=== PATIENT | male | born 1980 | race Caucasian/White ===

== ENCOUNTER 2023-08-23 08:04 | Outpatient (OUT) | payer BC, SELFPAY ==
[2023-08-23 08:20] LABS: Basophils Absolute Auto 0.1 10^3/uL (0.0-0.1); Basophils Percent Auto 0.8 % (0.2-2.0); Eosinophils Absolute Auto 0.4 10^3/uL (0.0-0.7); Eosinophils Percent Auto 5.1 % (0.9-7.0); Hematocrit 44.2 % (42.0-54.0); Hemoglobin 14.7 g/dL (14.0-18.0); Immature Granulocytes Abs Auto 0.03 10^3/uL (0.00-0.03); Immature Granulocytes Pct Auto 0.4 % (0.0-0.5); Lymphocytes Absolute Auto 1.9 10^3/uL (1.2-3.8); Mean Corpuscular HGB Conc 33.3 g/dL (29.9-35.2); Mean Corpuscular Hemoglobin 31.6 pg (25.9-34.0); Mean Corpuscular Volume 95.1 fL (80.0-94.0); Mean Platelet Volume 9.9 fL (9.5-13.5); Monocytes Absolute Auto 0.7 10^3/uL (0.3-0.8); Monocytes Percent Auto 9.4 % (1.7-12.0); Neutrophils Absolute Auto 4.4 10^3/uL (1.4-6.5); Neutrophils Percent Auto 59.3 % (43.0-75.0); Platelet Count 213 10^3/uL (150-450); Red Blood Count 4.65 10^6/uL (4.70-6.10); Red Cell Distribution Width 13.4 % (11.0-15.0); White Blood Count 7.5 10^3/uL (4.0-11.0)
[2023-08-23 09:01] LABS: Alanine Aminotransferase 51 U/L (16-63); Albumin Globulin Ratio 1.1; Albumin Level 4.1 g/dL (3.4-5.0); Alkaline Phosphatase 87 U/L (46-116); Anion Gap 13.2; Aspartate Amino Transferase 23 U/L (15-37); BUN Creatinine Ratio 11.9; Bilirubin Total 0.5 mg/dL (0.2-1.0); Calcium 8.9 mg/dL (8.5-10.1); Chloride 100 mmol/L (98-107); Chol HDL Ratio 4.6; Cholesterol 214 mg/dL (<=200); Estimated GFR (African America >60 (>=60); Estimated GFR (Non-African Ame >60 (>=60); Globulin 3.8 g/dL; Glucose 93 mg/dL (74-106); HDL Cholesterol 47 mg/dL (40-60); Potassium 4.2 mmol/L (3.5-5.1); Sodium 137 mmol/L (136-145); Thyroid Stimulating Hormone 0.908 uIU/mL (0.358-3.740); Total Protein 7.9 g/dL (6.4-8.2); Triglycerides 76 mg/dL (<=150); VLDL CHOLESTEROL 15.2 mg/dL
== END 2023-08-23 08:05 | disposition home or self-care (01) ==
LOC: LAB 08:05
PROVIDERS: Family Provider Student in an Organized Health Care Education/Training Program; PCP Student in an Organized Health Care Education/Training Program; Visit Provider Student in an Organized Health Care Education/Training Program
DX: Z00.00 Encounter for general adult medical examination without abnormal findings (principal)
CPT/HCPCS: 36415; 80053; 80061; 84443; 85025

== ENCOUNTER 2025-06-17 08:39 | Outpatient (OUT) | payer BC, SELFPAY ==
--- OUTSIDE RECORDS SUMMARY | 2025-06-17 08:42 | XMS_ITS | Encounter Summary ---
Author Organization [facility] Address [address] [place] [address] Care Team Providers Care Field Worker Name Role Phone Anna Iniguez MD Primary Care Provider [phone] Anna Iniguez MD Unavailable [phone] Encounter Details Date Type Department Care Team (Late st Contact Info) Description 08/23/2023 Abstract [facility] [place] [facility] [address] [place] [address] Anna Iniguez MD [address] [place] [address] Social History Tobacco Use Types Packs/Day Years Used Date Smoking Tobacco: Former Cigarettes S tarted: 10/21/2020 Alcohol Use Standard Drinks/Week Comments Yes 0 (1 standard drink = 0.6 oz pur e alcohol) Caffeine intake: soda Humiliation, Afraid, Rape, and Kick questionnair e Answer Date Recorded Within the last year, have y ou been afraid of your partner or ex-partner? No 08/23/2023 Within the last year, have y ou been humiliated or emotionally abused in other ways by your partner or ex-partner? No Within the last year, have y ou been kicked, hit, slapped, or otherwise physically hurt by your partner or ex-partner? No 08/23/2023 Within the last year, have y ou been raped or forced to have any kind of sexual activity by your partner or ex-partner? No 08/23/2023 Social Connection and Isolat ion Panel [NHANES] Answer Date Recorded In a typical week, how many times do you talk on the phone with family, friends, or neighbors? More than three times a week 08/23/2023 How often do you get togethe r with friends or relatives? Once a week 08/23/2023 How often do you attend chur ch or sabianist services? Never 08/23/2023 Do you belong to any clubs o r organizations such as evangelical groups, unions, fraternal or athletic groups, or school groups? Yes 08/23/2023 How often do you attend meet ings of the clubs or organizations you belong to? More than 4 times per year 08/23/2023 Are you , , di vorced, , never , or living with a partner? 08/23/2023 AUDIT-C Answer Date Recorded Q1: How often do you have a drink containing alc ohol? 2-3 times a week 08/23/2023 Q2: How many drinks containi ng alcohol do you have on a typical day when you are drinking? 3 or 4 08/23/2023 Q3: How often do you have si x or more drinks on one occasion? Weekly 08/23/2023 Overall Financial Resource Strain (CARDIA) Answe r Date Recorded How hard is it for you to pa y for the very basics like food, housing, medical care, and heating? Not hard at all 08/23/2023 [facility] - Occupational Stress Questionnaire Answer Date Recorded Do you feel stress - tense, restless, nervous, or anxious, or unable to sleep at night because your mind is troubled all the time - these days? To some extent 08/23/2023 Exercise Vital Sign Answer Date Recorde d On average, how many days pe r week do you engage in moderate to strenuous exercise (like a brisk walk)? 2 days 08/23/2023 On average, how many minutes do you engage in exercise at this level? 30 min 08/23/2023 Hunger Vital Sign Answer Date Recorded Within the past 12 months, y ou worried that your food would run out before you got the money to buy more. Never true 08/23/20 23 Within the past 12 months, t he food you bought just didn't last and you didn't have money to get more. Never true 08/23/2023 PRAPARE - Transportation Answer Date Re corded In the past 12 months, has l ack of transportation kept you from medical appointments or from getting medications? No 05/2023 In the past 12 months, has l ack of transportation kept you from meetings, work, or from getting things needed for daily living? No 08/23/2023 Housing Stability Vital Sign Answer Joseph e Recorded In the last 12 months, was t here a time when you were not able to pay the mortgage or rent on time? No 08/23/2023 In the last 12 months, how many places have you lived? 1 08/23/2023 In the last 12 months, was t here a time when you did not have a steady place to sleep or slept in a long-term (including now)? No 08/23/2023 Sex and Gender Information Value Date Recorded Sex Assigned at Male 08/23/2023 8:51 AM EST Legal Sex Male 7:07 PM EDT Gender Identity Male 2022 7:07 PM EDT Sexual Orientation Bisexual 08/23/2023 8: 51 AM EST Sexual Orientation Straight 08/23/2023 8: 51 AM EST COVID-19 Exposure Response Date Recorded In the last 10 days, have yo u been in contact with someone who was confirmed or suspected to have Coronavirus/COVID-19? No / Unsure 08/23/2023 9:07 AM EST documented as of this encounter Functional Status * Audit-C Score Answer Date of Assessment Author 7 08/23/2023 9:07 AM EST Mychart, Generic * Q1: How often do you have a drink containing alcohol? Answer Date of Assessment Author 2-3 times a week 08/23/2023 9:07 AM EST Mychart, Generic * Q2: How many drinks containing alcohol do you have on a typical day when you are drinking? Answer Date of Assessment Author 3 or 4 08/23/2023 9:07 AM EST Mychart, Generic * Q3: How often do you have six or more drinks on one occasion? Answer Date of Assessment Author Weekly 08/23/2023 9:07 AM EST Mychart, Generic documented as of this encounter Plan of Treatment Not on file documented as of this encounter Visit Diagnoses Not on filedocumented in this encounter Care Teams Field Worker Relationship Specialty Start Date End Date Anna Iniguez MD [address] [place] [address] PCP - General 08/23/23 Anna Iniguez MD [address] [place] [address] PCP - Jarrod Bhagat 04/15/25 documented as of this encounter
--- OUTSIDE RECORDS SUMMARY | 2025-06-17 08:42 | XMS_ITS | Encounter Summary ---
Author Organization [facility] Address [address] [place] [address] Care Team Providers Care Painting Contractor Name Role Phone Anna Iniguez MD Primary Care Provider [phone] Anna Iniguez MD Unavailable [phone] Encounter Details Date Type Department Care Team (Late st Contact Info) Description 09/05/2023 Clinisync Result Encounter [facility] Department Unsolicited Anna Iniguez MD [address] [place] [address] Social History Tobacco Use Types Packs/Day Years Used Date Smoking Tobacco: Former Cigarettes S tarted: 10/21/2020 Smokeless Tobacco: Never Alcohol Use Standard Drinks/Week Comments Yes 0 [...] often do you attend chur ch or jehovah's witness services? Never 08/23/2023 Do you belong to any clubs o r organizations such as baptism groups, unions, fraternal or athletic groups, or [...] and heating? Not hard at all 08/23/2023 [facility] - Occupational Stress [...] place to sleep or slept in a [facility] (including now)? No 08/23/2023 Sex and Gender [...] AM EST documented as of this encounter Plan of Treatment Not on file documented as of this encounter Procedures Procedure Name Priority Date/Time Associated Diagnosis Comments ECG STRESS EXERCISE 09/05/2023 3 :10 PM EST documented in this encounter Results * ECG STRESS EXERCISE (09/05/2023 3:10 PM EST) Anatomical Region Laterality Modality Other 09/05/2023 3:10 PM EST Narrative 09/05/2023 4:16 PM EST Echocardiology Procedure Exam Date/Time Accession # Ordering ECG Stress Exercise 09/05/2023 15:10 EST [id number] Hira FARIAS, Anna Spicer CPT code 24642 Reason for Exam (ECG Stress Exercise) R07.89 Report TREADMILL ELECTROCARDIOGRAM 09/05/2023 INDICATIONS: Chest pain. RESTING ELECTROCARDIOGRAM: The patient has normal sinus rhythm, normal axis, normal intervals, no evidence of previous myocardial infarction. TREADMILL ELECTROCARDIOGRAM: The patient exercised according to a En Protocol for 8 minutes and 54 seconds achieving a maximum workload of 10.10 METS. Resting heart rate was 71 beats per minute and cecille to a maximum of 169 beats per minute which represents 93% of the maximal age predicted heart rate. Resting blood pressure was 118/74 and cecille to a maximum of 190/87. Test was terminated due to fatigue. During exercise the patient's heart rate increased as expected. The patient had no dynamic electrocardiogram changes to suggest ischemia. No arrhythmia is noted. No anginal symptoms noted. CONCLUSIONS: Normal, adequate treadmill electrocardiogram. Negative for ischemia by electrocardiogram criteria. No anginal symptoms noted. No arrhythmia is noted. Appropriate blood pressure response to exercise. Average exercise capacity for age. Test was terminated due to fatigue. The patient tolerated the procedure well. No complications. FINAL REPORT Signed (Electronic Signature): 09/05/2023 4:16 pm Signed by: Farhad KILPATRICK MD Transcribed by: lulú Technologist: Neal Procedure Note Radiology, Radiologist, MD - 09/05/2023 Echocardiology Procedure Exam Date/Time Accession #Ordering ECG Stress Exercise 09/05/2023 15:10 [facility] [id number] Iniguez MD CPT code 71646 Reason for Exam (ECG Stress Exercise) R07.89 Report TREADMILL ELECTROCARDIOGRAM 09/05/2023 INDICATIONS: Chest pain. RESTING ELECTROCARDIOGRAM: The patient has normal sinus rhythm, normalaxis, normal intervals, no evidence of previous myocardial infarction. TREADMILL ELECTROCARDIOGRAM: The patient exercised according to a BruceProtocol for 8 minutes and 54 seconds achieving a maximum workload of 10.10 METS. Resting heartrate was 71 beats per minute and cecille to a maximum of 169 beats per minute which represents 93%of the maximal age predicted heart rate. Resting blood pressure was 118/74 and cecille to amaximum of 190/87. Test was terminated due to fatigue. During exercise the patient's heart rate increased as expected. Thepatient had no dynamic electrocardiogram changes to suggest ischemia. No arrhythmia is noted. Noanginal symptoms noted. CONCLUSIONS: Normal, adequate treadmill electrocardiogram. Negative for ischemia byelectrocardiogram criteria. No anginal symptoms noted. No arrhythmia is noted. Appropriateblood pressure response to exercise. Average exercise capacity for age. Test was terminated due tofatigue. The patient tolerated the procedure well. No complications. FINAL REPORT Signed (Electronic Signature): 09/05/2023 4:16 pm Signed by: FINESSE FARIAS, Farhad Morse Transcribed by: lulú Technologist: CANDIDA us Anna Iniguez MD [facility] Final Resul t documented in this encounter Visit Diagnoses Not on filedocumented in this encounter Care Teams Painting Contractor Relationship Specialty Start Date End Date Anna Iniguez MD [address] [place] [address] PCP - General 08/23/23 Anna Iniguez MD [address] [place] [address] PCP - [place] [employer] 04/15/25 documented as of this encounter
--- OUTSIDE RECORDS SUMMARY | 2025-06-17 08:49 | XMS_ITS | CCD ---
Author Organization [facility] Care Team Providers Care Regional Agronomist Name Role Phone JOSSY INIGUEZ Primary Care Unavailable MISC, DR LEVIN Admitting Unavailable MISC, DR LEVIN Attending Unavailable MISC, DR LEVIN Consulting Unavailable HIRA, JOSSY Primary Care Unavailable MISC, DR LEVIN Admitting Unavailable MISC, DR LEVIN Attending Unavailable MISC, DR LEVIN Consulting Unavailable HIRA, JOSSY Consulting Unavailable ROSSCLEO MANA Admitting Unavailable ROSSCLEO Attending Unavailable ROSSCLEO Consulting Unavailable HIRA, JOSSY Primary Care Unavailable HIRA, JOSSY Primary Care Unavailable CARLOTA JACK Admitting Unavailable CARLOTA, JACK Attending Unavailable CARLOTA JACK Consulting Unavailable JOSIE GAFFNEY ANNMARIE Admitting Unavailable JOSIE GAFFNEY Attending Unavailable JOSIE GAFFNEY Consulting Unavailable HIRA, JOSSY Primary Care Unavailable HIRA, JOSSY Primary Care Unavailable HIRA, JOSSY Consulting Unavailable HIRA, JOSSY Admitting Unavailable JOSSY INIGUEZ Attending Unavailable Hira Anna FARIAS Primary Care Provider ANNA INIGUEZ Attending Unavailable Anna Iniguez Primary Care Physician Kalie Ibarra Attending Unavailable Anna Iniguez Referring Unavailable Kalie Ibarra Attending Unavailable Problems Active Problems Problem Classification Problem Date Documented Da te Episodic/Chronic Genitourinary symptoms and ill-defined conditions (4 sources) Polyuria; Translations: [Polyuria] 03-04-2025 Episodic Hyperplasia of prostate (1 source) Benign prostatic hypertrophy with outflow obstruction; Translations: [Benign prostatic hyperplasia with lower urinary tract symptoms] Onset: 05-27-2025 Chronic Other aftercare (5 sources) 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; Translations: [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 THERAPY] Onset: 03-28-2022 Episodic Other diseases of kidney and ureters (1 source) Urinary tract obstruction; Translations: [Other obstructive and reflux uropathy] Onset: 05-27-2025 Episodic Other nervous system disorders (1 source) Other disturbances of skin sensation; Translations: [OTHER DISTURBANCES SKIN SENSATION] Onset: 06-02-2022 Episodic Other nutritional; endocrine; and metabolic disorders (2 sources) Body mass index 30+ - obesity; Translations: [Body mass index (BMI) 33.0-33.9, adult] 03-04-2025 Chronic Other nutritional; endocrine; and metabolic disorders (2 sources) Obese class I; Translations: [Obesity (BMI 30.0-34.9)] 03-04-2025 Chronic Other skin disorders (4 sources) Other cicatricial alopecia; 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] Onset: 06-01-2022 Episodic Residual codes; unclassified (1 source) Tobacco user 05-26-2025 Episodic Unclassified (2 sources) CONTACT W/AND (SUSP) EXPOS COVID-19; Translations: [CONTACT W/AND (SUSP) EXPOS COVID-19] Onset: 02-25-2022 Viral infection (1 source) COVID-19; Translations: [COVID-19] Onset: 02-25-2022 Past or Other Problems Problem Classification Problem Date Documented Da te Episodic/Chronic Immunizations and screening for infectious disease (6 sources) Encounter for immunization; Translations: [Contact with and (suspected) exposure to other viral communicable diseases] Onset: 07-18-2021 Episodic Malaise and fatigue (3 sources) Other fatigue; Translations: [OTHER FATIGUE] Onset: 07-01-2021 Episodic Other screening for suspected conditions (not mental disorders or infectious disease) (1 source) Encounter for screening for malignant neoplasm of prostate; Translations: [ENC SCREEN MALIG NEOPLASM PROSTATE] Onset: 01-21-2022 Episodic Unclassified (1 source) CONTACT W/AND (SUSP) EXPOS COVID-19; Translations: [CONTACT W/AND (SUSP) EXPOS COVID-19] Onset: 02-23-2022 Results Test Name Value Interpretation Reference Range Facility Ambulatory Visit Summaryon 0 05-27-2025 Ambulatory Visit Summary Ambulatory Visit Summary JEROD ESCOBEDO :1980 Visit Date:05/27/2025 Ambulatory Visit Instructions Your Diagnosis Polyuria Your Care Team Attending Physician - Fred HOLLIS, Kalie Morse Primary Care Physician - Anna Iniguez MD Referring Physician - Anna Iniguez MD Discharge Vitals Heart Rate (Peripheral) 70 Blood Pressure 128/87 Height 168 cm Height 66 in Weight 95 kg Weight 209.439 lb BMI 33.66 Allergies No Known Allergies Patient Survey You may receive a survey via text or e-mail asking about your office visit. Please share your experience with us by completing your survey. We appreciate your feedback and thank you for choosing us for your care. Patient Portal You may access all of your results and other medical record information on our secure patient portal. If you are not signed up for this yet, please contact [employer] at [phone] to get signed up today. Language Information Language assistance services are available as needed. Normal [facility] Urology Office/Clinic Noteon 05-27-2025 Urology Office/Clinic Note Urology Office/Clinic Note Chief Complaint new pt HPI Staff 44 year old male new patient referral polyuria Patient denies any dysuria or gross hematuria. Denies any flank or abdomen pain. urgency History of Present Illness Staff HPI reviewed and agree. Review of Systems PHQ Score Initial Depression Screen Score: 0 SCORE no fever, chills, malaise, myalgia. no rash/lesions. no chest pain, palpitations, or SOB. no abdominal pain, nausea, vomiting. 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 1. BPH with urinary obstruction (N40.1: Benign prostatic hyperplasia with lower urinary tract symptoms) UA today negative for blood or infection PVR today 150ml IPSS 25 Pt here today for polyuria referral. Pt reports over the past couple of years he has noticed an increase in frequency, urgency, straining, weak stream and incomplete emptying. Pt reports he drinks mostly water but does admit to drinking at least 1 pot of coffee daily. Discussed with patient that this is a bladder irritant and is most likely contributing to his bothersome symptoms. Pt also reports diarrhea, discussed bowel/bladder connection. Pt denies DM, kidney stones or hematuria. Pt denies any ejaculation problems or discomfort. Discussed male anatomy with patient which may be contributing to his symptoms as well as bladder function. Advised pt that overtime prostate size can increase which causes symptoms he is describing. Discussed moderately increased PVR, advised pt to complete timed and double voids. Offered trial of Flomax v cystoscopy/TRUS for sizing. Pt reports he would like to trial lifestyle modifications first before proceeding with medications or other intervention. Pt knows to call prior to appointment if symptoms worsen. -Increase water intake, greatly reduce coffee intake -Bowel management -Timed and double voids -F/U in 3 months to assess symptoms Ordered: E&M of New Patient Moderate 45-59 Min 69928 2. Screening PSA (prostate specific antigen) (Z12.5: Encounter for screening for malignant neoplasm of prostate) No PSAs on file. Pt reports family history of prostate cancer in his father. His father was diagnosed in his early 60s, had EBRT and now is undergoing radiation for recurrence. Discussed PSA monitoring with patient due to family history and he is thankful and agreeable. Pt reports he gets yearly labs at [facility] through wellness program. PSA order provided today. Will review at follow up. -PSA order provided today -Will review results at follow up Ordered: E&M of New Patient Moderate 45-59 Min 93616 PSA Total Orders: [id number] Measure Post Void residual urine and/or bladder capacity by US- non-imaging Urnls Dip Stick Auto w/o Microscopy POC [id number] Follow-up With When Contact Information Fred HOLLIS, MARI Solis Within 3 months Additional Instructions: w/ PSA Patient Education Benign Prostatic Hyperplasia Problem List/Past Medical History Ongoing No qualifying data Historical No qualifying data Medications No active medications Allergies No Known Allergies Social History Alcohol Past. Wine, Liquor. Daily., 05/26/2025 Substance Abuse Never., 05/26/2025 Tobacco 4 or less cigarettes(less than 1/4 pack)/day in last 30 days Tobacco Use:., 05/26/2025 Lab Results Ambulatory Point of Care Results Bilirubin Urine Dipstick: Negative (05/27/25 12:55:00) Blood Urine Dipstick: Negative (05/27/25 12:55:00) Glucose Urine Dipstick: Negative (05/27/25 12:55:00) Ketones Urine Dipstick: Negative (05/27/25 12:55:00) Leukocytes Urine Dipstick: Negative (05/27/25 12:55:00) Nitrite Urine Dipstick: Negative (05/27/25 12:55:00) Protein Urine Dipstick: Negative (05/27/25 12:55:00) Specific [place] Urine Dipstick: 1.010 (05/27/25 12:55:00) Urine Appearance Urine Dipstick: Clear (05/27/25 12:55:00) Urine Color Urine Dipstick: Yellow (05/27/25 12:55:00) Urobilinogen Urine Dipstick: Normal 0.2-1 EU/dl (05/27/25 12:55:00) pH Urine Dipstick: 7 (05/27/25 12:55:00) Normal [facility] Comment on above: Result Comment: Elec tronically Signed By: Kalie Chung\.br\Date and Time Signed: 05/27/25 14:08 EDT CBC AUTO DIFFon 06-01-2022 BASO # 0.1 103/ul Normal 0.0-0.1 [facility] Comment on above: Performed By: #### C BC #### [facility] [address] [address] [address] Eboni Phelan Basophils/100 WBC (Bld) 1.1 % Normal 0.2-2.0 [facility] Comment on above: Performed By: #### C BC #### [facility] [address] [address] [address] Eboni Phelan EO # 0.5 103/ul Normal 0.0-0.7 [facility] Comment on above: Performed By: #### C BC #### [facility] [address] [place] [address] Dr. Eboni Phelan Eosinophils/100 WBC (Bld) 6.5 % Normal 0.9-7.0 [facility] Comment on above: Performed By: #### C BC #### [facility] [address] [place] [address] Dr. Eboni Phelan Erythrocyte distribution width (RBC) [Ratio] 13.2 % Normal 11.0-15.0 [facility] Comment on above: Performed By: #### C BC #### [facility] [address] [place] [address] Dr. Eboni Phelan Hematocrit (Bld) [Volume fraction] 44.5 % Normal 42.0-54.0 [facility] Comment on above: Performed By: #### C BC #### [facility] [address] [place] [address] Dr. Eboni Phelan Hemoglobin (Bld) [Mass/Vol] 15.0 g/dL Normal 14.0-18.0 [facility] Comment on above: Performed By: #### C BC #### [facility] [address] [place] [address] Dr. Eboni Phelan IG # 0.02 10e3/ul Normal 0.00-0.03 [facility] Comment on above: Performed By: #### C BC #### [facility] [address] [place] [address] Dr. Eboni Phelan IG % 0.2 % Normal 0.0-0.5 [facility] Comment on above: Performed By: #### C BC #### [facility] [address] [place] [address] Dr. Eboni Phelan LYMPH # 2.1 103/ul Normal 1.2-3.8 [facility] Comment on above: Performed By: #### C BC #### [facility] [address] [place] [address] Dr. Eboni Phelan Lymphocytes/100 WBC (Bld) 25.6 % Normal 20.5-60.0 [facility] Comment on above: Performed By: #### C BC #### [facility] [address] [place] [address] Dr. Eboni Phelan MANUAL DIFF REQ NO Normal [facility] Comment on above: Performed By: #### C BC #### [facility] [address] [place] [address] Dr. Eboni Phelan MCH (RBC) [Entitic mass] 31.6 pg Normal 25.9-34.0 [facility] Comment on above: Performed By: #### C BC #### [facility] [address] [place] [address] Dr. Eboni Phelan MCHC (RBC) [Mass/Vol] 33.7 g/dL Normal 29.9-35.2 [facility] Comment on above: Performed By: #### C BC #### [facility] [address] [place] [address] Dr. Eboni Phelan MCV (RBC) [Entitic vol] 93.7 fL Normal 80.0-94.0 [facility] Comment on above: Performed By: #### C BC #### [facility] [address] [place] [address] Dr. Eboni Phelan MONO # 0.7 103/ul Normal 0.3-0.8 [facility] Comment on above: Performed By: #### C BC #### [facility] [address] [place] [address] Dr. Eboni Phelan Monocytes/100 WBC (Bld) 8.1 % Normal 1.7-12.0 [facility] Comment on above: Performed By: #### C BC #### [facility] [address] [place] [address] Dr. Eboni Phelan NEUT # 4.8 103/ul Normal 1.4-6.5 [facility] Comment on above: Performed By: #### C BC #### [facility] [address] [place] [address] Dr. Eboni Phelan Neutrophils/100 WBC (Bld) 58.5 % Normal 43.0-75.0 [facility] Comment on above: Performed By: #### C BC #### [facility] [address] [place] [address] Dr. Eboni Phelan Platelet mean volume (Bld) [Entitic vol] 9.3 fL Critically low 9.5-13.5 [facility] Comment on above: Performed By: #### C BC #### [facility] [address] [place] [address] Dr. Eboni Phelan PLT 247 103/ul Normal 150-450 [facility] Comment on above: Performed By: #### C BC #### [facility] [address] [place] [address] Dr. Eboni Phelan RBC 4.75 106/ul Normal 4.70-6.10 [facility] Comment on above: Performed By: #### C BC #### [facility] [address] [place] [address] Dr. Eboni Phelan WBC 8.2 103/ul Normal 4.0-11.0 [facility] Comment on above: Performed By: #### C BC #### [facility] [address] [place] [address] Dr. Eboni Phelan SGOTon 06-01-2022 AST [Catalytic activity/Vol] 18 U/L Normal 15-37 [facility] Comment on above: Performed By: #### A ST, ALT, TRIG #### [facility] [address] [place] [address] Dr. Eboni Phelan SGPTon 06-01-2022 ALT [Catalytic activity/Vol] 25 U/L Normal 16-63 [facility] Comment on above: Performed By: #### A ST, ALT, TRIG #### [facility] [address] [place] [address] Dr. Eboni Phelan TRIGLYCERIDEon 06-01-2022 Triglyceride [Mass/Vol] 100 mg/dL Normal <=150 [facility] Comment on above: Performed By: #### A ST, ALT, TRIG #### [facility] [address] [place] [address] Dr. Eboni Phelan CBC AUTO DIFFon 03-28-2022 BASO # 0.1 103/ul Normal 0.0-0.1 [facility] Comment on above: Performed By: #### C PRICE CVDTBH #### [facility] [address] [place] [address] Dr. Eboni Phelan Basophils/100 WBC (Bld) 1.0 % Normal 0.2-2.0 [facility] Comment on above: Performed By: #### C PRICE CVDTBH #### [facility] [address] [place] [address] Dr. Eboni Phelan EO # 0.4 103/ul Normal 0.0-0.7 [facility] Comment on above: Performed By: #### C CORNELIUS THRASHERTBH #### [facility] [address] [place] [address] Dr. Eboni Phelan Eosinophils/100 WBC (Bld) 4.5 % Normal 0.9-7.0 [facility] Comment on above: Performed By: #### CORNELIUS CHRISTIETBH #### [facility] [address] [place] [address] Dr. Eboni Phelan Erythrocyte distribution width (RBC) [Ratio] 13.5 % Normal 11.0-15.0 [facility] Comment on above: Performed By: #### CORNELIUS CHRISTIETBH #### [facility] [address] [place] [address] Dr. Eboni Phelan Hematocrit (Bld) [Volume fraction] 42.5 % Normal 42.0-54.0 [facility] Comment on above: Performed By: #### CORNELIUS CHRISTIETBH #### [facility] [address] [place] [address] Dr. Eboni Phelan Hemoglobin (Bld) [Mass/Vol] 14.1 g/dL Normal 14.0-18.0 [facility] Comment on above: Performed By: #### C PRICE CVDTBH #### [facility] [address] [place] [address] Dr. Eboni Phelan IG # 0.04 10e3/ul Critically high 0.00-0.03 [facility] Comment on above: Performed By: #### C PRICE CVDTBH #### [facility] [address] [place] [address] Dr. Eboni Phelan IG % 0.5 % Normal 0.0-0.5 [facility] Comment on above: Performed By: #### C VDAGS, CVDTBH #### [facility] [address] [address] [address] Eboni Phelan LYMPH # 2.7 103/ul Normal 1.2-3.8 [facility] Comment on above: Performed By: #### C VDAGS, CVDTBH #### [facility] [address] [place] [address] Dr. Eboni Phelan Lymphocytes/100 WBC (Bld) 31.2 % Normal 20.5-60.0 [facility] Comment on above: Performed By: #### C VDAGS, CVDTBH #### [facility] [address] [place] [address] Dr. Eboni Phelan MANUAL DIFF REQ NO Normal [facility] Comment on above: Performed By: #### C VDAGS, CVDTBH #### [facility] [address] [place] [address] Dr. Eboni Phelan MCH (RBC) [Entitic mass] 31.3 pg Normal 25.9-34.0 [facility] Comment on above: Performed By: #### C VDAGS, CVDTBH #### [facility] [address] [place] [address] Dr. Eboni Phelan MCHC (RBC) [Mass/Vol] 33.2 g/dL Normal 29.9-35.2 [facility] Comment on above: Performed By: #### C VDAGS, CVDTBH #### [facility] [address] [place] [address] Dr. Eboni Phelan MCV (RBC) [Entitic vol] 94.4 fL Critically high 80.0-94.0 [facility] Comment on above: Performed By: #### C VDAGS, CVDTBH #### [facility] [address] [place] [address] Dr. Eboni Phelan MONO # 0.8 103/ul Normal 0.3-0.8 [facility] Comment on above: Performed By: #### C CORNELIUS THRASHERTBH #### [facility] [address] [place] [address] Dr. Eboni Phelan Monocytes/100 WBC (Bld) 9.5 % Normal 1.7-12.0 [facility] Comment on above: Performed By: #### C PRICE CVDTBH #### [facility] [address] [place] [address] Dr. Eboni Phelan NEUT # 4.6 103/ul Normal 1.4-6.5 [facility] Comment on above: Performed By: #### C PRICE CVDTBH #### [facility] [address] [place] [address] Dr. Eboni Phelan Neutrophils/100 WBC (Bld) 53.3 % Normal 43.0-75.0 [facility] Comment on above: Performed By: #### C PRICE CVDTBH #### [facility] [address] [place] [address] Dr. Eboni Phelan Platelet mean volume (Bld) [Entitic vol] 9.8 fL Normal 9.5-13.5 [facility] Comment on above: Performed By: #### C PRICE CVDTBH #### [facility] [address] [place] [address] Dr. Eboni Phelan PLT 274 103/ul Normal 150-450 [facility] Comment on above: Performed By: #### C PRICE CVDTBH #### [facility] [address] [place] [address] Dr. Eboni Phelan RBC 4.50 106/ul Critically low 4.70-6.10 [facility] Comment on above: Performed By: #### C PRICE CVDTBH #### [facility] [address] [place] [address] Dr. Eboni Phelan WBC 8.7 103/ul Normal 4.0-11.0 [facility] Comment on above: Performed By: #### C VDAGS, CVDTBH #### [facility] [address] [address] [address] Eboni Phelan SGOTon 03-28-2022 AST [Catalytic activity/Vol] 21 U/L Normal 15-37 [facility] Comment on above: Performed By: #### T RIG, ALT, AST #### [facility] [address] [place] [address] Dr. Eboni Phelan SGPTon 03-28-2022 ALT [Catalytic activity/Vol] 38 U/L Normal 16-63 [facility] Comment on above: Performed By: #### T RIG, ALT, AST #### [facility] [address] [address] [address] Eboni Phelan TRIGLYCERIDEon 03-28-2022 Triglyceride [Mass/Vol] 104 mg/dL Normal <=150 [facility] Comment on above: Performed By: #### T RIG, ALT, AST #### [facility] [address] [place] [address] Dr. Eboni Phelan SYMPTOMATIC COVID-19 ANTIGEN on 02-23-2022 EUA Statement SEE BELOW Normal [facility] Comment on above: Result Comment: This test has not been FDA cleared or approved, but has been authorized by the FDA under an Emergency Use Authorization (EUA) for use by authorized laboratories certified under CLIA that meet the requirements to perform moderate or high complexity testing. This test has been authorized only for the detection of proteins from SARS-CoV-2, not for any other viruses or pathogens. The emergency use of this test is authorized for the duration of the declaration that circumstances exist justifying the authorization of emergency use of in vitro diagnostic tests for detection and/or diagnosis of Covid-19 under section 564(b)(1) of the Act, 21 U.S.C. 360bbb-3(b)(1), unless the declaration is terminated or authorization is revoked sooner. Performed By: #### C VDAGS, CVDTBH #### [facility] [address] [place] [address] Dr. Eboni Phelan SARS-CoV-2 (COVID-19) RNA WINIFRED+probe Ql (Unsp spec) Positive Critically abnormal NEGATIVE [facility] Comment on above: Performed By: #### C PRICE CVDTB #### [facility] [address] [place] [address] Dr. Eboni Phelan BILIRUBIN CONJUGATED (DIRECT )on 01-19-2022 BILI, CONJUGATED 0.1 mg/dL Normal 0.0-0.3 [facility] Comment on above: Performed By: #### C PRICE CVDTB #### [facility] [address] [place] [address] Dr. Eboni Phelan CBC AUTO DIFFon 01-19-2022 BASO # 0.1 103/ul Normal 0.0-0.1 [facility] Comment on above: Performed By: #### C PRICE CVDTB #### [facility] [address] [place] [address] Dr. Eboni Phelan Basophils/100 WBC (Bld) 0.8 % Normal 0.2-2.0 [facility] Comment on above: Performed By: #### C PRICE CVDTB #### [facility] [address] [place] [address] Dr. Eboni Phelan EO # 0.4 103/ul Normal 0.0-0.7 [facility] Comment on above: Performed By: #### C PRICE CVDTB #### [facility] [address] [place] [address] Dr. Eboni Phelan Eosinophils/100 WBC (Bld) 5.0 % Normal 0.9-7.0 [facility] Comment on above: Performed By: #### C PRICE CVDTB #### [facility] [address] [place] [address] Dr. Eboni Phelan Erythrocyte distribution width (RBC) [Ratio] 13.2 % Normal 11.0-15.0 [facility] Comment on above: Performed By: #### C PRICE CVDTB #### [facility] [address] [place] [address] Dr. Eboni Phelan Hematocrit (Bld) [Volume fraction] 44.1 % Normal 42.0-54.0 [facility] Comment on above: Performed By: #### C VDAGS CVDTBH #### [facility] [address] [place] [address] Dr. Eboni Phelan Hemoglobin (Bld) [Mass/Vol] 14.9 g/dL Normal 14.0-18.0 [facility] Comment on above: Performed By: #### C VDAGS CVDTBH #### [facility] [address] [place] [address] Dr. Eboni Phelan IG # 0.02 10e3/ul Normal 0.00-0.03 [facility] Comment on above: Performed By: #### C CORNELIUS THRASHERTBH #### [facility] [address] [place] [address] Dr. Eboni Phelan IG % 0.3 % Normal 0.0-0.5 [facility] Comment on above: Performed By: #### C PRICE CVDTBH #### [facility] [address] [place] [address] Dr. Eboni Phelan LYMPH # 2.0 103/ul Normal 1.2-3.8 [facility] Comment on above: Performed By: #### C PRICE CVDTBH #### [facility] [address] [place] [address] Dr. Eboni Phelan Lymphocytes/100 WBC (Bld) 27.3 % Normal 20.5-60.0 [facility] Comment on above: Performed By: #### C VDAGMarc CVDTBH #### [facility] [address] [place] [address] Dr. Eboni Phelan MANUAL DIFF REQ NO Normal [facility] Comment on above: Performed By: #### C KITTYAGMarc CVDTBH #### [facility] [address] [place] [address] Dr. Eboni Phelan MCH (RBC) [Entitic mass] 31.7 pg Normal 25.9-34.0 [facility] [facility] Comment on above: Performed By: #### C VDAGS CVDTBH #### [facility] [address] [place] [address] Dr. Eboni Phelan MCHC (RBC) [Mass/Vol] 33.8 g/dL Normal 29.9-35.2 [facility] Comment on above: Performed By: #### C VDAGMarc, CVDTB #### [facility] [address] [place] [address] Dr. Eboni Phelan MCV (RBC) [Entitic vol] 93.8 fL Normal 80.0-94.0 [facility] Comment on above: Performed By: #### C VDAGS, CVDTB #### [facility] [address] [place] [address] Dr. Eboni Phelan MONO # 0.6 103/ul Normal 0.3-0.8 [facility] Comment on above: Performed By: #### C VDAGS, CVDTB #### [facility] [address] [place] [address] Dr. Eboni Phelan Monocytes/100 WBC (Bld) 7.6 % Normal 1.7-12.0 [facility] Comment on above: Performed By: #### C VDAGS, CVDTBH #### [facility] [address] [place] [address] Dr. Eboni Phelan NEUT # 4.4 103/ul Normal 1.4-6.5 [facility] Comment on above: Performed By: #### C VDAGS, CVDTB #### [facility] [address] [place] [address] Dr. Eboni Phelan Neutrophils/100 WBC (Bld) 59.0 % Normal 43.0-75.0 [facility] Comment on above: Performed By: #### C VDAGS, CVDTB #### [facility] [address] [place] [address] Dr. Eboni Phelan Platelet mean volume (Bld) [Entitic vol] 9.9 fL Normal 9.5-13.5 [facility] Comment on above: Performed By: #### C VDAGS, CVDTBH #### [facility] [address] [place] [address] Dr. Eboni Phelan PLT 231 103/ul Normal 150-450 [facility] Comment on above: Performed By: #### C VDAGS, CVDTBH #### [facility] [address] [address] [address] Eboni Phelan RBC 4.70 106/ul Normal 4.70-6.10 [facility] Comment on above: Performed By: #### C VDAGS, CVDTBH #### [facility] [address] [address] [address] Eboni Phelan WBC 7.4 103/ul Normal 4.0-11.0 [facility] Comment on above: Performed By: #### C VDAGS, CVDTBH #### [facility] [address] [address] [address] Eboni Phelan GLYCOHEMOGLOBIN A1Con 2021 ADA RECOMMENDATION ADA THERAPEUTIC TARGET 6.0 - 7.0 ACTION SUGGESTED > 7.0 Normal [facility] Comment on above: Performed By: #### C PRICE CVDTBH #### [facility] [address] [address] [address] Eboni Phelan Glucose [Mass/Vol] 103 mg/dL Normal [facility] Comment on above: Performed By: #### C PRICE CVDTBH #### [facility] [address] [address] [address] Eboni Phelan HbA1c (Bld) [Mass fraction] 5.2 % Normal <=6.0 [facility] Comment on above: Performed By: #### C PRICE, CVDTBH #### [facility] [address] [address] [address] Eboni Phelan LIPID PROFILEon 01-19-2022 CHOL-HDL RATIO NORM SEE BELOW Normal [facility] Comment on above: Result Comment: 3.3 - 4.4 LOW RISK 4.4 - 7.1 AVERAGE RISK 7.1 - 11.0 MODERATE RISK >11.0 HIGH RISK Performed By: #### C VDAGS, CVDTBH #### [facility] [address] [address] [address] Eboni Phelan Cholesterol [Mass/Vol] 179 mg/dL Normal <=200 [facility] Comment on above: Performed By: #### C VDAGS, CVDTBH #### [facility] [address] [address] [address] Eboni Phelan Cholesterol in HDL [Mass/Vol] 41 mg/dL Normal 40-60 [facility] Comment on above: Performed By: #### C VDAGS, CVDTBH #### [facility] [address] [address] [address] Eboni Phelan Cholesterol in LDL [Mass/Vol] 117.6 mg/dL Normal [facility] Comment on above: Performed By: #### C VDAGS, CVDTBH #### [facility] [address] [address] [address] Eboni Phelan Cholesterol.total/Ch olesterol in HDL [Mass ratio] 4.4 {ratio} Normal [facility] Comment on above: Performed By: #### C VDAGS CVDTBH #### [facility] [address] [address] [address] Eboni Phelan HDL NORMAL > or = 60 mg/dl - LOW CARDIOVASCULAR RISK <40 mg/dl - HIGH CARDIOVASCULAR RISK Normal [facility] Comment on above: Performed By: #### C VDAGMarc CVDTBH #### [facility] [address] [address] [address] Eboni Phelan LDL CALC NORMAL SEE BELOW Normal [facility] Comment on above: Result Comment: <100 mg/dl OPTIMAL 100 - 129 mg/dl NEAR OR ABOVE OPTIMAL 130 - 159 mg/dl BORDERLINE HIGH 160 - 189 mg/dl HIGH >190 mg/dl VERY HIGH Performed By: #### C VDAGS, CVDTBH #### [facility] [address] [address] [address] Eboni Phelan Triglyceride [Mass/Vol] 102 mg/dL Normal <=150 [facility] Comment on above: Performed By: #### C VDAGS, CVDTBH #### [facility] [address] [address] [address] Eboni Phelan VLDL CALC 20.4 mg/dL Normal [facility] Comment on above: Performed By: #### C PRICE CVDTBH #### [facility] [address] [place] [address] Dr. Eboni Phelan PROF 14(COMP METB)on 022 Albumin [Mass/Vol] 4.0 g/dL Normal 3.4-5.0 [facility] Comment on above: Performed By: #### C PRICE CVDTBH #### [facility] [address] [place] [address] Dr. Eboni Phelan Albumin/Globulin [Mass ratio] 1.1 {ratio} Normal [facility] Comment on above: Performed By: #### C CORNELIUS THRASHERTBH #### [facility] [address] [place] [address] Dr. Eboni Phelan ALP [Catalytic activity/Vol] 87 U/L Normal 46-116 [facility] Comment on above: Performed By: #### C PRICE CVDTBH #### [facility] [address] [place] [address] Dr. Eboni Phelan ALT [Catalytic activity/Vol] 49 U/L Normal 16-63 [facility] Comment on above: Performed By: #### C CORNELIUS THRASHERTBH #### [facility] [address] [place] [address] Dr. Eboni Phelan Anion gap [Moles/Vol] 8.8 mmol/L Normal [facility] Comment on above: Performed By: #### C VDAGMarc CVDTBH #### [facility] [address] [place] [address] Dr. Eboni Phelan AST [Catalytic activity/Vol] 22 U/L Normal 15-37 [facility] Comment on above: Performed By: #### C PRICE CVDTBH #### [facility] [address] [place] [address] Dr. Eboni Phelan Bilirubin [Mass/Vol] 0.4 mg/dL Normal 0.2-1.3 [facility] Comment on above: Performed By: #### C VDAGMarc CVDTBH #### [facility] [address] [place], [place] [id number] Dr. Eboni Phelan Calcium [Mass/Vol] 9.2 mg/dL Normal 8.5-10.1 [facility] Comment on above: Performed By: #### C VDAGS, CVDTBH #### [facility] [address] [place] [address] Dr. Eboni Phelan Chloride [Moles/Vol] 101 mmol/L Normal 98-107 [facility] Comment on above: Performed By: #### C VDAGS, CVDTBH #### [facility] [address] [place] [address] Dr. Eboni Phelan CO2 [Moles/Vol] 30.7 mmol/L Critically high 22.0-30.0 [facility] Comment on above: Performed By: #### C VDAGS, CVDTBH #### [facility] [address] [place] [address] Dr. Eboni Phelan Creatinine [Mass/Vol] 1.00 mg/dL Normal 0.66-1.25 [facility] Comment on above: Performed By: #### C VDAGS, CVDTBH #### [facility] [address] [place] [address] Dr. Eboni Phelan EGFR-AF ROMANIAN >60 Normal >=60 [facility] Comment on above: Performed By: #### C VDAGS, CVDTBH #### [facility] [address] [place] [address] Dr. Eboni Phelan EGFR-NON AF ROMANIAN >60 Normal >=60 [facility] Comment on above: Performed By: #### C VDAGS, CVDTBH #### [facility] [address] [place] [address] Dr. Eboni Phelan Globulin (S) [Mass/Vol] 3.8 g/dL Normal [facility] Comment on above: Performed By: #### C VDAGS, CVDTBH #### [facility] [address] [place] [address] Dr. Eboni Phelan Glucose [Mass/Vol] 102 mg/dL Normal 74-106 [facility] Comment on above: Performed By: #### C VDAGS, CVDTBH #### [facility] [address] [place] [address] Dr. Eboni Phelan Potassium [Moles/Vol] 4.5 mmol/L Normal 3.4-5.0 [facility] Comment on above: Performed By: #### C KITTYAGMarc CVDTBH #### [facility] [address] [place] [address] Dr. Eboni Phelan Protein [Mass/Vol] 7.8 g/dL Normal 6.1-8.2 [facility] Comment on above: Performed By: #### C KITTYAGMarc CVDTBH #### [facility] [address] [place] [address] Dr. Eboni Phelan Sodium [Moles/Vol] 136 mmol/L Critically low 137-145 [facility] Comment on above: Performed By: #### C PRICE CVDTBH #### [facility] [address] [place] [address] Dr. Eboni Phelan Urea nitrogen [Mass/Vol] 8.0 mg/dL Normal 7.0-18.0 [facility] Comment on above: Performed By: #### C PRICE CVDTBH #### [facility] [address] [place] [address] Dr. Eboni Phelan Urea nitrogen/Creatinine [Mass ratio] 8.0 mg/mg Normal [facility] Comment on above: Performed By: #### C PRICE CVDTBH #### [facility] [address] [place] [address] Dr. Eboni Phelan TSHon 01-19-2022 TSH 0.953 uIU/mL Normal 0.470-4.680 [facility] Comment on above: Performed By: #### C PRICE CVDTBH #### [facility] [address] [place] [address] Dr. Eboni Phelan TSH RANGE SEE BELOW Normal [facility] Comment on above: Result Comment: <0.3 4 UIU/ml HYPERTHYROID 0.34-5.60 UIU/ml EUTHYROID >5.60 UIU/ml HYPOTHYROID Performed By: #### C DIANAS, CVDTBH #### [facility] [address] [place], [place] [address] Dr. Eboni Phelan Covid-19 PCR ([facility])on 06-16 SARS-CoV-2 (COVID-19) RNA WINIFRED+probe Ql (Unsp spec) Not detected Normal NOT DETECTED [facility] Comment on above: Result Comment: This test is not yet approved or cleared by the [place] FDA. When there are no FDA-approved or cleared tests available, and other criteria are met, FDA can make tests available under an emergency access mechanism called an Emergency Use Authorization (EUA). The EUA for this test is supported by the [place] of Health and Human Service's (HHS's) declaration that circumstances exist to justify the emergency use of in vitro diagnostics for the detection and/or diagnosis of the virus that causes COVID-19. This EUA will remain in effect (meaning this test can be used) for the duration of the COVID-19 declaration justifying emergency of IVDs, unless it is terminated or revoked by FDA (after which the test may no longer be used). When diagnostic testing is negative, the possibility of a false negative should be considered in the context of a patient's recent exposures and the presence of clinical signs and symptoms consistent with SARS-CoV-2. Performed By: #### C PRICE, CVDTB #### [facility] [address] [place], [place] [address] Dr. Eboni Phelan SYMPTOMATIC COVID-19 ANTIGEN on 07-01-2021 EUA Statement SEE BELOW Normal [facility] Comment on above: Result Comment: This test has not been FDA cleared or approved, but has been authorized by the FDA under an Emergency Use Authorization (EUA) for use by authorized laboratories certified under CLIA that meet the requirements to perform moderate or high complexity testing. This test has been authorized only for the detection of proteins from SARS-CoV-2, not for any other viruses or pathogens. The emergency use of this test is authorized for the duration of the declaration that circumstances exist justifying the authorization of emergency use of in vitro diagnostic tests for detection and/or diagnosis of Covid-19 under section 564(b)(1) of the Act, 21 U.S.C. 360bbb-3(b)(1), unless the declaration is terminated or authorization is revoked sooner. Performed By: #### C VDAGS, CVDTB #### [facility] [address] [place], [place] [address] Dr. Eboni Phelan SARS-CoV-2 (COVID-19) RNA WINIFRED+probe Ql (Unsp spec) Negative Normal NEGATIVE [facility] Comment on above: Result Comment: CONF IRMATION BY PCR PENDING PER CDC GUIDELINES/ SYMPTOMATIC PATIENT. Performed By: #### C VDAGS, CVDTB #### [facility] [address] [place], [place] [address] Dr. Eboni Phelan Vital Signs Date Time Vital Sign Value Performing Clinician Faci lity 03-04-2025 08:41-0400 Body height 166.4 cm Anna Iniguez MD Work Phone: [facility] 03-04-2025 08:41-0400 Body mass index (BMI) [Ratio] 33.63 kg/m2 Anna Iniguez MD Work Phone: [facility] 03-04-2025 08:41-0400 Body temperature 98.6 [degF] Anna Iniguez MD Work Phone: [facility] 03-04-2025 08:41-0400 Body weight 93.08 kg Anna Iniguez MD Work Phone: [facility] 03-04-2025 08:41-0400 Diastolic blood pressure 80 mm[Hg] Anna Iniguez MD Work Phone: [facility] 03-04-2025 08:41-0400 Heart rate 65 /min Anna Iniguez MD Work Phone: [facility] 03-04-2025 08:41-0400 SaO2% (BldA) [Mass fraction] 99 % Anna Iniguez MD Work Phone: [facility] 03-04-2025 08:41-0400 Systolic blood pressure 138 mm[Hg] Anna Iniguez MD Work Phone: [facility] Encounters Encounter Date Encounter Type Care Provider Facility Start: 08-25-2025 ambulatory Kalie Morse Galea Facility :[facility] Start: 05-27-2025 End: 05-27-2025 ambulatory Anna Iniguez Facility:[facility] Start: 05-27-2025 End: 05-27-2025 Patient encounter procedure Kalie Ibarra [facility] Start: 03-04-2025 End: 03-04-2025 Bamboo flowsabigail Iniguez MD Work Phone: [facility] Start: 03-04-2025 End: 03-04-2025 Bamboo flowsabigail Iniguez MD Work Phone: [facility] Start: 03-04-2025 ambulatory Kalie Ibarra Facility:[facility] Start: 03-04-2025 End: 03-04-2025 Patient encounter procedure Anna Iniguez MD Work Phone: [facility] Start: 03-04-2025 End: 03-04-2025 Periodic preventive med est patient 40-64yrs Anna Iniguez MD Work Phone: [facility] Comment on above: Annual physical exam (Primary Dx); Polyuria; BMI 33.0-33.9,adult; Obesity (BMI 30.0-34.9) Start: 03-04-2025 End: 03-04-2025 ambulatory ANNA INIGUEZ Not Available Start: 06-01-2022 End: 06-02-2022 ambulatory JOSSY ANANDGLES Facility: Start: 03-28-2022 End: 03-29-2022 ambulatory JOSSY INIGUEZ Facility:[facility] Start: 02-23-2022 End: 02-23-2022 ambulatory JOSSY ANANDGLES Facility:[facility] Start: 01-21-2022 Encounter for genera l adult medical examination without abnormal findings JOSSY INIGUEZ [facility] Start: 01-19-2022 End: 01-20-2022 ambulatory JOSSY INIGUEZ Facility:[facility] Start: 01-19-2022 End: 01-20-2022 Encounter for general adult medical examination without abnormal findings JOSSY INIGUEZ Facility:[facility] Start: 08-11-2021 End: 08-12-2021 ambulatory CLEO DODGE Facility:[facility] Start: 07-01-2021 End: 07-01-2021 ambulatory JOSIE ANNMARIE GAFFNEY Facility:[facility] Procedures Date Procedure Procedure Detail Performing Clinician Start: 01-19-2022 PSA screening JOSSY JONES Comment on above: Performed By: #### P SAS #### [facility] [address] [place] [address] Dr. Eboni Phelan Plan of Treatment Date Care Activity Detail Author Start: 03-04-2025 End: 03-04-2025 Patient encounter procedure 03/04/2025 8:40 AM EDT Office Visit [facility] [address] [place] [id number] Anna Iniguez MD [address] [place] [address] Arrived [facility] Comment on above: Arrived Immunizations Immunization Date Immunization Notes Care Provider Fa [facility] 10-07-2019 influenza, seasonal, injectable, preservative free Anna Iniguez MD Work Phone: [facility] 04-09-2002 hepatitis B vaccine, pediatric or pediatric/adolescent dosage Anna Iniguez MD Work Phone: [facility] Payers Date Payer Category Payer Private Health Insurance [id number] 2022 [facility] Plan / Payer (Effective 2022-Present) Name: [place] Jerod Member ID: [id number] Relation to Subscriber: Self Name: Jerod Escobedo Subscriber ID: [id number] Payer ID: Not on file Type: Not on file Address: [facility] [address] [place] [address] [id number] 2022 Unknown [id number] 2019 Unknown [id number] 1982 Unknown [id number] [id number] 1982 Unknown [id number] 727 1982 Unknown [id number] 727 1982 Unknown [id number] 727 1959 Self-pay [id number] 1959 Unknown [id number] 593 1959 Unknown [id number] 593 1959 Unknown [id number]. 593 1959 Unknown [id number]. 593 1959 Unknown [id number] 593 Unknown [id number] 593 Social History Date Type Detail Facility Start: 08-24-2023 Tobacco smoking status [facility] Ex-smoker [facility] Start: 10-21-2020 History of tobacco use Current smoker [facility] Start: 10-21-2020 History of tobacco use Cigarette Smoker [facility] Start: 08-24-2023 Tobacco use and exposure Smokeless tobacco non-user [facility] Start: 08-24-2023 End: 03-04-2025 Alcoholic beverage intake Current drinker of alcohol (finding) [facility] Start: 08-23-2023 End: 03-03-2025 History of Social function [facility] Start: 08-23-2023 End: 03-03-2025 [id number] Health Literacy [facility] How often do you nee d to have someone help you when you read instructions, pamphlets, or other written material from your doctor or pharmacy [SILS] Never [facility] Within the last year , have you been afraid of your partner or ex-partner? No [facility] How often do you att end rastafarian or anabaptist services? Patient declined [facility] Are you now , , , , never or living with a partner? [facility] Do you feel stress - tense, restless, nervous, or anxious, or unable to sleep at night because your mind is troubled all the time - these days [OSQ] To some extent [facility] (I/We) worried wheth er (my/our) food would run out before (I/we) got money to buy more. Never true [facility] Start: 08-23-2023 Alcohol Comment Caffeine intake: soda [facility] Start: 1980 Sex assigned at Male [facility] Start: 2022 Gender identity Identifies as male gender (finding) [facility] Start: 08-23-2023 Sexual orientation Bisexual (finding) [facility] Start: 08-23-2023 Sexual orientation Heterosexual (finding) [facility] Start: 05-26-2025 Tobacco smoking status Light tobacco smoker (finding) [facility] Sexual Orientation [facility] Start: 01-04-2019 Sex Male (finding) [facility] Functional Status Date Assessment Result Facility 03-04-2025 Patient Health Quest ionnaire 2 item (PHQ-2) [Reported] [facility] Hospital Discharge instructions 05-27-2025 Note Date & Type Note Facility 05-27-2025 Hospital Discharge instructions Patient Education 05/27/2025 14:08:01 Benign Prostatic Hyperplasia Benign Prostatic Hyperplasia Benign prostatic hyperplasia (BPH) is an enlarged prostate gland that is caused by the normal aging process. The prostate may get bigger as a man gets older. The condition is not caused by cancer. The prostate is a walnut-sized gland that is involved in the production of semen. It is located in front of the rectum and below the bladder. The bladder stores urine. The urethra carries stored urine out of the body. An enlarged prostate can press on the urethra. This can make it harder to pass urine. The buildup of urine in the bladder can cause infection. Back pressure and infection may progress to bladder damage and kidney (renal) failure. What are the causes? This condition is part of the normal aging process. However, not all men develop problems from this condition. If the prostate enlarges away from the urethra, urine flow will not be blocked. If it enlarges toward the urethra and compresses it, there will be problems passing urine. What increases the risk? This condition is more likely to develop in men older than 50 years. What are the signs or symptoms? Symptoms of this condition include: Getting up often during the night to urinate. Needing to urinate frequently during the day. Difficulty starting urine flow. Decrease in size and strength of your urine stream. Leaking (dribbling) after urinating. Inability to pass urine. This needs immediate treatment. Inability to completely empty your bladder. Pain when you pass urine. This is more common if there is also an infection. Urinary tract infection (UTI). How is this diagnosed? This condition is diagnosed based on your medical history, a physical exam, and your symptoms. Tests will also be done, such as: A post-void bladder scan. This measures any amount of urine that may remain in your bladder after you finish urinating. A digital rectal exam. In a rectal exam, your health care provider checks your prostate by putting a lubricated, gloved finger into your rectum to feel the back of your prostate gland. This exam detects the size of your gland and any abnormal lumps or growths. An exam of your urine (urinalysis). A prostate specific antigen (PSA) screening. This is a blood test used to screen for prostate cancer. An ultrasound. This test uses sound waves to electronically produce a picture of your prostate gland. Your health care provider may refer you to a specialist in kidney and prostate diseases (urologist). How is this treated? Once symptoms begin, your health care provider will monitor your condition (active surveillance or watchful waiting). Treatment for this condition will depend on the severity of your condition. Treatment may include: Observation and yearly exams. This may be the only treatment needed if your condition and symptoms are mild. Medicines to relieve your symptoms, including: ?Medicines to shrink the prostate. ?Medicines to relax the muscle of the prostate. Surgery in severe cases. Surgery may include: ?Prostatectomy. In this procedure, the prostate tissue is removed completely through an open incision or with a laparoscope or robotics. ?Transurethral resection of the prostate (TURP). In this procedure, a tool is inserted through the opening at the tip of the penis (urethra). It is used to cut away tissue of the inner core of the prostate. The pieces are removed through the same opening of the penis. This removes the blockage. ?Transurethral incision (TUIP). In this procedure, small cuts are made in the prostate. This lessens the prostate's pressure on the urethra. ?Transurethral microwave thermotherapy (TUMT). This procedure uses microwaves to create heat. The heat destroys and removes a small amount of prostate tissue. ?Transurethral needle ablation (TUNA). This procedure uses radio frequencies to destroy and remove a small amount of prostate tissue. ?Interstitial laser coagulation (ILC). This procedure uses a laser to destroy and remove a small amount of prostate tissue. ?Transurethral electrovaporization (TUVP). This procedure uses electrodes to destroy and remove a small amount of prostate tissue. ?Prostatic urethral lift. This procedure inserts an implant to push the lobes of the prostate away from the urethra. Follow these instructions at home: Take [id number] and prescription medicines only as told by your health care provider. Monitor your symptoms for any changes. Contact your health care provider with any changes. Avoid drinking large amounts of liquid before going to bed or out in public. Avoid or reduce how much caffeine or alcohol you drink. Give yourself time when you urinate. Keep all follow-up visits. This is important. Contact a health care provider if: You have unexplained back pain. Your symptoms do not get better with treatment. You develop side effects from the medicine you are taking. Your urine becomes very dark or has a bad smell. Your lower abdomen becomes distended and you have trouble passing urine. Get help right away if: You have a fever or chills. You suddenly cannot urinate. You feel light-headed or very dizzy, or you faint. There are large amounts of blood or clots in your urine. Your urinary problems become hard to manage. You develop moderate to severe low back or flank pain. The flank is the side of your body between the ribs and the hip. These symptoms may be an emergency. Get help right away. Call 911. Do not wait to see if the symptoms will go away. Do not drive yourself to the hospital. Summary Benign prostatic hyperplasia (BPH) is an enlarged prostate that is caused by the normal aging process. It is not caused by cancer. An enlarged prostate can press on the urethra. This can make it hard to pass urine. This condition is more likely to develop in men older than 50 years. Get help right away if you suddenly cannot urinate. This information is not intended to replace advice given to you by your health care provider. Make sure you discuss any questions you have with your health care provider. Document Revised: 04/20/2022 Document Reviewed: 04/20/2022 [employer] Patient Education 2023 [employer]. Follow Up Care 05/14/2025 11:04:22 With:Kalie Chung, URL Address: When:3 months Comments:w/ [facility] Clinical Note 05-27-2025 Note Date & Type Note Facility 05-27-2025 Note Patient Education Urology Benign Prostatic Hyperplasia Benign prostatic hyperplasia (BPH) is an enlarged prostate gland that is caused by the normal aging process. The prostate may get bigger as a man gets older. The condition is not caused by cancer. The prostate is a walnut-sized gland that is involved in the production of semen. It is located in front of the rectum and below the bladder. The bladder stores urine. The urethra carries stored urine out of the body. An enlarged prostate can press on the urethra. This can make it harder to pass urine. The buildup of urine in the bladder can cause infection. Back pressure and infection may progress to bladder damage and kidney (renal) failure. What are the causes? This condition is part of the normal aging process. However, not all men develop problems from this condition. If the prostate enlarges away from the urethra, urine flow will not be blocked. If it enlarges toward the urethra and compresses it, there will be problems passing urine. What increases the risk? This condition is more likely to develop in men older than 50 years. What are the signs or symptoms? Symptoms of this condition include: ??? Getting up often during the night to urinate. ??? Needing to urinate frequently during the day. ??? Difficulty starting urine flow. ??? Decrease in size and strength of your urine stream. ??? Leaking (dribbling) after urinating. ??? Inability to pass urine. This needs immediate treatment. ??? Inability to completely empty your bladder. ??? Pain when you pass urine. This is more common if there is also an infection. ??? Urinary tract infection (UTI). How is this diagnosed? This condition is diagnosed based on your medical history, a physical exam, and your symptoms. Tests will also be done, such as: ??? A post-void bladder scan. This measures any amount of urine that may remain in your bladder after you finish urinating. ??? A digital rectal exam. In a rectal exam, your health care provider checks your prostate by putting a lubricated, gloved finger into your rectum to feel the back of your prostate gland. This exam detects the size of your gland and any abnormal lumps or growths. ??? An exam of your urine (urinalysis). ??? A prostate specific antigen (PSA) screening. This is a blood test used to screen for prostate cancer. ??? An ultrasound. This test uses sound waves to electronically produce a picture of your prostate gland. Your health care provider may refer you to a specialist in kidney and prostate diseases (urologist). How is this treated? Once symptoms begin, your health care provider will monitor your condition (active surveillance or watchful waiting). Treatment for this condition will depend on the severity of your condition. Treatment may include: ??? Observation and yearly exams. This may be the only treatment needed if your condition and symptoms are mild. ??? Medicines to relieve your symptoms, including: ? Medicines to shrink the prostate. ? Medicines to relax the muscle of the prostate. ??? Surgery in severe cases. Surgery may include: ? Prostatectomy. In this procedure, the prostate tissue is removed completely through an open incision or with a laparoscope or robotics. ? Transurethral resection of the prostate (TURP). In this procedure, a tool is inserted through the opening at the tip of the penis (urethra). It is used to cut away tissue of the inner core of the prostate. The pieces are removed through the same opening of the penis. This removes the blockage. ? Transurethral incision (TUIP). In this procedure, small cuts are made in the prostate. This lessens the prostate's pressure on the urethra. ? Transurethral microwave thermotherapy (TUMT). This procedure uses microwaves to create heat. The heat destroys and removes a small amount of prostate tissue. ? Transurethral needle ablation (TUNA). This procedure uses radio frequencies to destroy and remove a small amount of prostate tissue. ? Interstitial laser coagulation (ILC). This procedure uses a laser to destroy and remove a small amount of prostate tissue. ? Transurethral electrovaporization (TUVP). This procedure uses electrodes to destroy and remove a small amount of prostate tissue. ? Prostatic urethral lift. This procedure inserts an implant to push the lobes of the prostate away from the urethra. Follow these instructions at home: ??? Take trfr-zas-fndjexs and prescription medicines only as told by your health care provider. ??? Monitor your symptoms for any changes. Contact your health care provider with any changes. ??? Avoid drinking large amounts of liquid before going to bed or out in public. ??? Avoid or reduce how much caffeine or alcohol you drink. ??? Give yourself time when you urinate. ??? Keep all follow-up visits. This is important. Contact a health care provider if: ??? You have unexplained back pain. ??? Your symptoms do not get (more content not included)... [facility] History of Present illness Narrative 03-04-2025 Anna Iniguez MD - 03/04/2025 8:40 AM EDT Note Date & Type Note Facility 03-04-2025 History of Presen t illness Narrative Images from the original note were not included. Subjective Patient ID: Jerod Escobedo is a 44 y.o. male who presents for Annual Exam. HPI Pt here for annual exam. Has been under increased stress at work, but this is improving. Also c/o polyuria during the day and at night. Has not seen urology in the past. Review of Systems General: Denies fever, chills, fatigue, METZ or weight loss/gain CV: Denies CP, palpitations or swelling in legs Resp: denies cough, SOB or wheezing GI: Denies abd pain/n/v/c/d Skin: Denies rash Neuro: Denies LH or dizziness Objective Blood pressure 138/80, pulse 65, temperature 98.6 F, height 5' 5.5 , weight 205 lb 3.2 oz, SpO2 99%. Body mass index is 33.63 kg/m . Physical Exam General: alert & oriented, NAD Head: NC/AT Oral Cavity: MMM Skin: warm, dry Heart: RRR, No m/r/g, S1S2 nml Lungs: CTA b/l Abdomen: soft, ND/NT, BS wnl Musculoskeletal: normal gait Extremities: no clubbing, cyanosis or edema Neurological: nonfocal Psych: mood/affect full range Assessment/Plan Jerod was seen today for annual exam. Diagnoses and all orders for this visit: Annual physical exam (Primary) - Reviewed hx and meds - Discussed preventative care Polyuria - Ambulatory referral to Urology; Future BMI 33.0-33.9,adult Obesity (BMI 30.0-34.9) - continue to monitor weight documented in this encounter [facility] Evaluation + Plan note Note Date & Type Note Facility Evaluation + Plan note Future Appointments Appointment Date:08/25/2025 03:10:00 PM Scheduled Provider:Kalie Chung Location:[facility] Appointment Type:URO Office Visit Diagnostic Tests PendingPSA Total 05/27/25 [facility] Evaluation note Note Date & Type Note Facility Evaluation note Diagnosis Annual physical exam- Primary Routine general medical examination at a health care facility Polyuria BMI 33.0-33.9,adult Obesity (BMI 30.0-34.9) documented in this encounter [facility] Hospital course Narrative Note Date & Type Note Facility Hospital course Narrative No data available for this section [facility] Progress note Note Date & Type Note Facility Progress note No data available for this section [facility] Summary Purpose Family History No Family History Records FoundNo Family History Records Found No data available for this section No Family History Records Found Advance Directives No Advanced Directives Records FoundNo Advanced Directives Records FoundNo Advanced Directives Records Found Additional Source Comments (unrecognized sect ion and content) No Status Records FoundNo Status Records FoundNo Status Records Found INFORMATION SOURCE (unrecogn ized section and content) DATE CREATED AUTHOR 06/07/2022 [facility] DATE CREATED AUTHOR AUTHOR'S ORGANIZ ATION 03/05/2025 [facility] EPIC DATE CREATED AUTHOR AUTHOR'S ORGANIZ ATION 05/29/2025 [facility] Care Teams (unrecognized sec tion and content) Regional Agronomist Relationship Specialty Start Date End Date Anna Iniguez MD [address] [place] [address] PCP - General 08/23/23 Regional Agronomist Relationship Specialty Start Date End Date Anna Iniguez MD [address] [place] [address] PCP - General 08/23/23 Reason for Visit (unrecogniz ed section and content) Reason Comments Annual Exam FOR RECORDS PERTAINING TO PATIENTS WHO ARE OR HAVE BEEN ENROLLED IN A CHEMICAL DEPENDENCY/SUBSTANCEABUSE PROGRAM, SOME INFORMATION MAY BE OMITTED. This clinical summary was aggregated from multiple sources. Caution should be exercised in using it in the provision of clinical care. This summary normalizes information from multiple sources, and as a consequence, information in this document may materially change the coding, format and clinical context of patient data. In addition, data may be omitted in some cases. CLINICAL DECISIONS SHOULD BE BASED ON THE PRIMARY CLINICAL RECORDS. [facility]. provides no warranty or guarantee of the accuracy or completeness of information in this document.
[2025-06-17 09:39] LABS: Albumin Globulin Ratio 1.0; Albumin Level 3.9 g/dL (3.4-5.0); Alkaline Phosphatase 104 U/L (46-116); Anion Gap 11.4; Aspartate Amino Transferase 35 U/L (15-37); Blood Urea Nitrogen 13.0 mg/dL (7.0-18.0); Calcium 9.4 mg/dL (8.5-10.1); Carbon Dioxide 29.0 mmol/L (21.0-32.0); Chloride 104 mmol/L (98-107); Cholesterol 183 mg/dL (<=200); Estimated GFR (African America >60 (>=60 mL/min/1.73m^2); Estimated GFR (Non-African Ame >60 (>=60 mL/min/1.73m^2); Globulin 4.0 g/dL; Glucose 104 mg/dL (74-106); HDL Cholesterol 46 mg/dL (40-60); Potassium 4.4 mmol/L (3.5-5.1); Sodium 140 mmol/L (136-145); Total Protein 7.9 g/dL (6.4-8.2); Triglycerides 93 mg/dL (<=150); VLDL CHOLESTEROL 18.6 mg/dL
[2025-06-17 09:48] LABS: Alanine Aminotransferase 82 U/L (16-63)
== END 2025-06-17 08:40 | disposition home or self-care (01) ==
LOC: LAB 08:40
PROVIDERS: Family Provider Student in an Organized Health Care Education/Training Program; PCP Student in an Organized Health Care Education/Training Program; Visit Provider Nurse Practitioner
DX: Z79.899 Other long term (current) drug therapy (principal); Z12.5 Encounter for screening for malignant neoplasm of prostate
CPT/HCPCS: 36415; 80053; 80061; 84153

== ENCOUNTER 2025-06-17 08:42 | Outpatient (OUT) | payer BC, SELFPAY ==
--- OUTSIDE RECORDS SUMMARY | 2025-06-17 08:50 | XMS_ITS | Clinical Summary ---
Author Organization [facility] Healthcare Address [address] [place] [address] Care Team Providers Care Rand Cementer Name Role Phone Anna Iniguez MD Primary Care Provider [phone] Anna Iniguez MD Unavailable Allergies No known active allergies Medications No known medications Active Problems No known active problems Immunizations Immunization Administration Dates Next Due Hep B, Adolescent or Pediatric 04/09/2002 Influenza, seasonal, injectable, preservative fr ee 10/07/2019 Family History Medical History Relation Name Comments Prostate cancer Father Obesity Mother Relation Name Status Comments Brother Alive Father Alive Mother Alive Son Alive Social History Tobacco Use Types Packs/Day Years Used Date Smoking Tobacco: Former Cigarettes S tarted: 10/21/2020 Smokeless Tobacco: Never Alcohol Use Standard Drinks/Week Comments Yes 0 (1 standard drink = 0.6 oz pur e alcohol) Caffeine intake: soda [id number] Health Literacy Answer Date Recor ded How often do you need to hav e someone help you when you read instructions, pamphlets, or other written material from your doctor or pharmacy? Never 03/03/2025 Humiliation, Afraid, Rape, and Kick questionnair e Answer Date Recorded Within the last year, have y ou been afraid of your partner or ex-partner? No 03/03/2025 Within the last year, have y ou been humiliated or emotionally abused in other ways by your partner or ex-partner? No Within the last year, have y ou been kicked, hit, slapped, or otherwise physically hurt by your partner or ex-partner? No 03/03/2025 Within the last year, have y ou been raped or forced to have any kind of sexual activity by your partner or ex-partner? No 03/03/2025 Social Connection and Isolat ion Panel [NHANES] Answer Date Recorded In a typical week, how many times do you talk on the phone with family, friends, or neighbors? More than three times a week 03/03/2025 How often do you get togethe r with friends or relatives? More than three times a week 03/03/2025 How often do you attend chur or mandaen services? Patient declined 03/03/2025 Do you belong to any clubs o r organizations such as alevism groups, unions, fraternal or athletic groups, or school groups? Patient declined 03/03/2025 How often do you attend meet ings of the clubs or organizations you belong to? Patient declined 03/03/2025 Are you , , di vorced, , never , or living with a partner? 03/03/2025 AUDIT-C Answer Date Recorded Q1: How often do you have a drink containing alcohol? Never 03/03/2025 Q2: How many drinks containi ng alcohol do you have on a typical day when you are drinking? Patient does not drink Q3: How often do you have si x or more drinks on one occasion? Never 03/03/2025 Overall Financial Resource Strain (CARDIA) Answe r Date Recorded How hard is it for you to pa y for the very basics like food, housing, medical care, and heating? Not hard at all 03/03/2025 PHQ-2 Answer Date Recorded Patient Health Questionnaire-2 Score 0 03/04/2025 [facility] - Occupational Stress Questionnaire Answer Date Recorded Do you feel stress - tense, restless, nervous, or anxious, or unable to sleep at night because your mind is troubled all the time - these days? To some extent 03/03/2025 Exercise Vital Sign Answer Date Recorde d On average, how many days pe r week do you engage in moderate to strenuous exercise (like a brisk walk)? 4 days 03/03/2025 On average, how many minutes do you engage in exercise at this level? 30 min 03/03/2025 Hunger Vital Sign Answer Date Recorded Within the past 12 months, y ou worried that your food would run out before you got the money to buy more. Never true 03/03/20 25 Within the past 12 months, t he food you bought just didn't last and you didn't have money to get more. Never true 03/03/2025 PRAPARE - Transportation Answer Date Re corded In the past 12 months, has l ack of transportation kept you from medical appointments or from getting medications? No 02/13 In the past 12 months, has l ack of transportation kept you from meetings, work, or from getting things needed for daily living? No 03/03/2025 Housing Stability Vital Sign Answer Joseph e [...] place to sleep or slept in a jail (including now)? No 08/23/2023 Housing Stability Vital Sign Answer Joseph e Recorded In the last 12 months, was t here a time when you were not able to pay the mortgage or rent on time? No 03/03/2025 Number of Times Moved in the Last Year Not on fi le 03/03/2025 At any time in the past 12 m [facility], were you homeless or living in a jail (including now)? No 03/03/2025 Sex and Gender Information Value Date Recorded Sex Assigned at Male 08/23/2023 8:51 AM EST Legal Sex Male 7:07 PM EDT Gender Identity Male 2022 7:07 PM EDT Sexual Orientation Bisexual 08/23/2023 8: 51 AM EST Sexual Orientation Straight 08/23/2023 8: 51 AM EST Last Filed Vital Signs Vital Sign Reading Time Taken Comments Blood Pressure 138/80 03/04/2025 8:41 AM EDT Pulse 65 03/04/2025 8:41 AM EDT Temperature 37 C (98.6 F) 03/04/2025 8:41 AM EDT Respiratory Rate - - Oxygen Saturation 99% 03/04/2025 8:41 AM EDT Inhaled Oxygen Concentration - - Weight 93.1 kg (205 lb 3.2 oz) 03/04/2025 8:41 A M EDT Height 166.4 cm (5' 5.5 ) 03/04/2025 8:41 AM EDT Body Mass Index 33.63 03/04/2025 8:41 AM EDT Plan of Treatment Health Maintenance Due Date Last Done Comments Influenza Vaccine (#1) 2025 07/18/2024, 2018 Insurance [facility] Care Teams Rand Cementer Relationship Specialty Start Date End Date Anna Iniguez MD [address] [place] [address] PCP - General 08/23/23 Anna Iniguez MD [address] [place] [address] PCP - Noank Commercial 04/15/25
--- OUTSIDE RECORDS SUMMARY | 2025-06-17 08:54 | XMS_ITS | CCD ---
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 Language Information Language assistance services are available as needed. 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 Anna Iniguez for polyuria. [...] E&M of New Patient Moderate 45-59 Min 78806 2. Screening PSA (prostate specific antigen) (Z12.5: [...] Pt reports he gets yearly labs at [facility] through wellness program. PSA order provided today. Will review at follow up. -PSA order provided today -Will review results at follow up Ordered: E&M of New Patient Moderate 45-59 Min 10534 PSA Total Orders: [id number] Measure Post Void residual urine and/or bladder capacity by US- non-imaging Urnls Dip Stick Auto w/o Microscopy POC [id number] Follow-up With When Contact Information Fred HOLLIS, [...] Protein Urine Dipstick: Negative (05/27/25 12:55:00) Specific [place] Urine Dipstick: 1.010 (05/27/25 12:55:00) Urine Appearance Urine Dipstick: Clear (05/27/25 12:55:00) Urine Color Urine Dipstick: Yellow (05/27/25 12:55:00) Urobilinogen Urine Dipstick: Normal 0.2-1 EU/dl (05/27/25 12:55:00) pH Urine Dipstick: 7 (05/27/25 12:55:00) Normal [facility] Comment on above: Result Comment: Elec tronically Signed By: Kalie Chung\.br\Date and Time Signed: 05/27/25 14:08 EDT CBC AUTO DIFFon 06-01-2022 BASO # 0.1 103/ul Normal 0.0-0.1 [facility] Comment on above: Performed By: #### C BC #### [facility] [address] [address] [address] Eboni Phelan Basophils/100 WBC (Bld) 1.1 % Normal 0.2-2.0 [facility] Comment on above: Performed By: #### C BC #### [facility] [address] [address] [address] Eboni Phelan EO # 0.5 103/ul Normal 0.0-0.7 [facility] Comment on above: Performed By: #### C BC #### [facility] [address] [place] [address] Dr. Eboni Phelan Eosinophils/100 WBC (Bld) 6.5 % Normal 0.9-7.0 [facility] Comment on above: Performed By: #### C BC #### [facility] [address] [place] [address] Dr. Eboni Phelan Erythrocyte distribution width (RBC) [Ratio] 13.2 % Normal 11.0-15.0 [facility] Comment on above: Performed By: #### C BC #### [facility] [address] [place] [address] Dr. Eboni Phelan Hematocrit (Bld) [Volume fraction] 44.5 % Normal 42.0-54.0 [facility] Comment on above: Performed By: #### C BC #### [facility] [address] [place] [address] Dr. Eboni Phelan Hemoglobin (Bld) [Mass/Vol] 15.0 g/dL Normal 14.0-18.0 [facility] Comment on above: Performed By: #### C BC #### [facility] [address] [place] [address] Dr. Eboni Phelan IG # 0.02 10e3/ul Normal 0.00-0.03 [facility] Comment on above: Performed By: #### C BC #### [facility] [address] [place] [address] Dr. Eboni Phelan IG % 0.2 % Normal 0.0-0.5 [facility] Comment on above: Performed By: #### C BC #### [facility] [address] [place] [address] Dr. Eboni Phelan LYMPH # 2.1 103/ul Normal 1.2-3.8 [facility] Comment on above: Performed By: #### C BC #### [facility] [address] [place] [address] Dr. Eboni Phelan Lymphocytes/100 WBC (Bld) 25.6 % Normal 20.5-60.0 [facility] Comment on above: Performed By: #### C BC #### [facility] [address] [place] [address] Dr. Eboni Phelan MANUAL DIFF REQ NO Normal [facility] Comment on above: Performed By: #### C BC #### [facility] [address] [place] [address] Dr. Eboni Phelan MCH (RBC) [Entitic mass] 31.6 pg Normal 25.9-34.0 [facility] Comment on above: Performed By: #### C BC #### [facility] [address] [place] [address] Dr. Eboni Phelan MCHC (RBC) [Mass/Vol] 33.7 g/dL Normal 29.9-35.2 [facility] Comment on above: Performed By: #### C BC #### [facility] [address] [place] [address] Dr. Eboni Phelan MCV (RBC) [Entitic vol] 93.7 fL Normal 80.0-94.0 [facility] Comment on above: Performed By: #### C BC #### [facility] [address] [place] [address] Dr. Eboni Phelan MONO # 0.7 103/ul Normal 0.3-0.8 [facility] Comment on above: Performed By: #### C BC #### [facility] [address] [place] [address] Dr. Eboni Phelan Monocytes/100 WBC (Bld) 8.1 % Normal 1.7-12.0 [facility] Comment on above: Performed By: #### C BC #### [facility] [address] [place] [address] Dr. Eboni Phelan NEUT # 4.8 103/ul Normal 1.4-6.5 [facility] Comment on above: Performed By: #### C BC #### [facility] [address] [place] [address] Dr. Eboni Phelan Neutrophils/100 WBC (Bld) 58.5 % Normal 43.0-75.0 [facility] Comment on above: Performed By: #### C BC #### [facility] [address] [place] [address] Dr. Eboni Phelan Platelet mean volume (Bld) [Entitic vol] 9.3 fL Critically low 9.5-13.5 [facility] Comment on above: Performed By: #### C BC #### [facility] [address] [place] [address] Dr. Eboni Phelan PLT 247 103/ul Normal 150-450 [facility] Comment on above: Performed By: #### C BC #### [facility] [address] [place] [address] Dr. Eboni Phelan RBC 4.75 106/ul Normal 4.70-6.10 [facility] Comment on above: Performed By: #### C BC #### [facility] [address] [place] [address] Dr. Eboni Phelan WBC 8.2 103/ul Normal 4.0-11.0 [facility] Comment on above: Performed By: #### C BC #### [facility] [address] [place] [address] Dr. Eboni Phelan SGOTon 06-01-2022 AST [Catalytic activity/Vol] 18 U/L Normal 15-37 [facility] Comment on above: Performed By: #### A ST, ALT, TRIG #### [facility] [address] [place] [address] Dr. Eboni Phelan SGPTon 06-01-2022 ALT [Catalytic activity/Vol] 25 U/L Normal 16-63 [facility] Comment on above: Performed By: #### A ST, ALT, TRIG #### [facility] [address] [place] [address] Dr. Eboni Phelan TRIGLYCERIDEon 06-01-2022 Triglyceride [Mass/Vol] 100 mg/dL Normal <=150 [facility] Comment on above: Performed By: #### A ST, ALT, TRIG #### [facility] [address] [place] [address] Dr. Eboni Phelan CBC AUTO DIFFon 03-28-2022 BASO # 0.1 103/ul Normal 0.0-0.1 [facility] Comment on above: Performed By: #### C PRICE CVDTBH #### [facility] [address] [place] [address] Dr. Eboni Phelan Basophils/100 WBC (Bld) 1.0 % Normal 0.2-2.0 [facility] Comment on above: Performed By: #### C PRICE CVDTBH #### [facility] [address] [place] [address] Dr. Eboni Phelan EO # 0.4 103/ul Normal 0.0-0.7 [facility] Comment on above: Performed By: #### C CORNELIUS THRASHERTBH #### [facility] [address] [place] [address] Dr. Eboni Phelan Eosinophils/100 WBC (Bld) 4.5 % Normal 0.9-7.0 [facility] Comment on above: Performed By: #### CORNELIUS CHRISTIETBH #### [facility] [address] [place] [address] Dr. Eboni Phelan Erythrocyte distribution width (RBC) [Ratio] 13.5 % Normal 11.0-15.0 [facility] Comment on above: Performed By: #### CORNELIUS CHRISTIETBH #### [facility] [address] [place] [address] Dr. Eboni Phelan Hematocrit (Bld) [Volume fraction] 42.5 % Normal 42.0-54.0 [facility] Comment on above: Performed By: #### CORNELIUS CHRISTIETBH #### [facility] [address] [place] [address] Dr. Eboni Phelan Hemoglobin (Bld) [Mass/Vol] 14.1 g/dL Normal 14.0-18.0 [facility] Comment on above: Performed By: #### C PRICE CVDTBH #### [facility] [address] [place] [address] Dr. Eboni Phelan IG # 0.04 10e3/ul Critically high 0.00-0.03 [facility] Comment on above: Performed By: #### C PRICE CVDTBH #### [facility] [address] [place] [address] Dr. Eboni Phelan IG % 0.5 % Normal 0.0-0.5 [facility] Comment on above: Performed By: #### C VDAGS, CVDTBH #### [facility] [address] [address] [address] Eboni Phelan LYMPH # 2.7 103/ul Normal 1.2-3.8 [facility] Comment on above: Performed By: #### C VDAGS, CVDTBH #### [facility] [address] [place] [address] Dr. Eboni Phelan Lymphocytes/100 WBC (Bld) 31.2 % Normal 20.5-60.0 [facility] Comment on above: Performed By: #### C VDAGS, CVDTBH #### [facility] [address] [place] [address] Dr. Eboni Phelan MANUAL DIFF REQ NO Normal [facility] Comment on above: Performed By: #### C VDAGS, CVDTBH #### [facility] [address] [place] [address] Dr. Eboni Phelan MCH (RBC) [Entitic mass] 31.3 pg Normal 25.9-34.0 [facility] Comment on above: Performed By: #### C VDAGS, CVDTBH #### [facility] [address] [place] [address] Dr. Eboni Phelan MCHC (RBC) [Mass/Vol] 33.2 g/dL Normal 29.9-35.2 [facility] Comment on above: Performed By: #### C VDAGS, CVDTBH #### [facility] [address] [place] [address] Dr. Eboni Phelan MCV (RBC) [Entitic vol] 94.4 fL Critically high 80.0-94.0 [facility] Comment on above: Performed By: #### C VDAGS, CVDTBH #### [facility] [address] [place] [address] Dr. Eboni Phelan MONO # 0.8 103/ul Normal 0.3-0.8 [facility] Comment on above: Performed By: #### C CORNELIUS THRASHERTBH #### [facility] [address] [place] [address] Dr. Eboni Phelan Monocytes/100 WBC (Bld) 9.5 % Normal 1.7-12.0 [facility] Comment on above: Performed By: #### C PRICE CVDTBH #### [facility] [address] [place] [address] Dr. Eboni Phelan NEUT # 4.6 103/ul Normal 1.4-6.5 [facility] Comment on above: Performed By: #### C PRICE CVDTBH #### [facility] [address] [place] [address] Dr. Eboni Phelan Neutrophils/100 WBC (Bld) 53.3 % Normal 43.0-75.0 [facility] Comment on above: Performed By: #### C PRICE CVDTBH #### [facility] [address] [place] [address] Dr. Eboni Phelan Platelet mean volume (Bld) [Entitic vol] 9.8 fL Normal 9.5-13.5 [facility] Comment on above: Performed By: #### C PRICE CVDTBH #### [facility] [address] [place] [address] Dr. Eboni Phelan PLT 274 103/ul Normal 150-450 [facility] Comment on above: Performed By: #### C PRICE CVDTBH #### [facility] [address] [place] [address] Dr. Eboni Phelan RBC 4.50 106/ul Critically low 4.70-6.10 [facility] Comment on above: Performed By: #### C PRICE CVDTBH #### [facility] [address] [place] [address] Dr. Eboni Phelan WBC 8.7 103/ul Normal 4.0-11.0 [facility] Comment on above: Performed By: #### C VDAGS, CVDTBH #### [facility] [address] [address] [address] Eboni Phelan SGOTon 03-28-2022 AST [Catalytic activity/Vol] 21 U/L Normal 15-37 [facility] Comment on above: Performed By: #### T RIG, ALT, AST #### [facility] [address] [place] [address] Dr. Eboni Phelan SGPTon 03-28-2022 ALT [Catalytic activity/Vol] 38 U/L Normal 16-63 [facility] Comment on above: Performed By: #### T RIG, ALT, AST #### [facility] [address] [address] [address] Eboni Phelan TRIGLYCERIDEon 03-28-2022 Triglyceride [Mass/Vol] 104 mg/dL Normal <=150 [facility] Comment on above: Performed By: #### T RIG, ALT, AST #### [facility] [address] [place] [address] Dr. Eboni Phelan SYMPTOMATIC COVID-19 ANTIGEN on 02-23-2022 EUA Statement SEE BELOW Normal [facility] Comment on above: Result Comment: This [...] Performed By: #### C VDAGS, CVDTBH #### [facility] [address] [place] [address] Dr. Eboni Phelan SARS-CoV-2 (COVID-19) RNA WINIFRED+probe Ql (Unsp spec) Positive Critically abnormal NEGATIVE [facility] Comment on above: Performed By: #### C PRICE CVDTB #### [facility] [address] [place] [address] Dr. Eboni Phelan BILIRUBIN CONJUGATED (DIRECT )on 01-19-2022 BILI, CONJUGATED 0.1 mg/dL Normal 0.0-0.3 [facility] Comment on above: Performed By: #### C PRICE CVDTB #### [facility] [address] [place] [address] Dr. Eboni Phelan CBC AUTO DIFFon 01-19-2022 BASO # 0.1 103/ul Normal 0.0-0.1 [facility] Comment on above: Performed By: #### C PRICE CVDTB #### [facility] [address] [place] [address] Dr. Eboni Phelan Basophils/100 WBC (Bld) 0.8 % Normal 0.2-2.0 [facility] Comment on above: Performed By: #### C PRICE CVDTB #### [facility] [address] [place] [address] Dr. Eboni Phelan EO # 0.4 103/ul Normal 0.0-0.7 [facility] Comment on above: Performed By: #### C PRICE CVDTB #### [facility] [address] [place] [address] Dr. Eboni Phelan Eosinophils/100 WBC (Bld) 5.0 % Normal 0.9-7.0 [facility] Comment on above: Performed By: #### C PRICE CVDTB #### [facility] [address] [place] [address] Dr. Eboni Phelan Erythrocyte distribution width (RBC) [Ratio] 13.2 % Normal 11.0-15.0 [facility] Comment on above: Performed By: #### C PRICE CVDTB #### [facility] [address] [place] [address] Dr. Eboni Phelan Hematocrit (Bld) [Volume fraction] 44.1 % Normal 42.0-54.0 [facility] Comment on above: Performed By: #### C VDAGS CVDTBH #### [facility] [address] [place] [address] Dr. Eboni Phelan Hemoglobin (Bld) [Mass/Vol] 14.9 g/dL Normal 14.0-18.0 [facility] Comment on above: Performed By: #### C VDAGS CVDTBH #### [facility] [address] [place] [address] Dr. Eboni Phelan IG # 0.02 10e3/ul Normal 0.00-0.03 [facility] Comment on above: Performed By: #### C CORNELIUS THRASHERTBH #### [facility] [address] [place] [address] Dr. Eboni Phelan IG % 0.3 % Normal 0.0-0.5 [facility] Comment on above: Performed By: #### C PRICE CVDTBH #### [facility] [address] [place] [address] Dr. Eboni Phelan LYMPH # 2.0 103/ul Normal 1.2-3.8 [facility] Comment on above: Performed By: #### C PRICE CVDTBH #### [facility] [address] [place] [address] Dr. Eboni Phelan Lymphocytes/100 WBC (Bld) 27.3 % Normal 20.5-60.0 [facility] Comment on above: Performed By: #### C VDAGMarc CVDTBH #### [facility] [address] [place] [address] Dr. Eboni Phelan MANUAL DIFF REQ NO Normal [facility] Comment on above: Performed By: #### C KITTYAGMarc CVDTBH #### [facility] [address] [place] [address] Dr. Eboni Phelan MCH (RBC) [Entitic mass] 31.7 pg Normal 25.9-34.0 [facility] Comment on above: Performed By: #### C VDAGS CVDTBH #### [facility] [address] [place] [address] Dr. Eboni Phelan MCHC (RBC) [Mass/Vol] 33.8 g/dL Normal 29.9-35.2 [facility] Comment on above: Performed By: #### C VDAGMarc, CVDTB #### [facility] [address] [place] [address] Dr. Eboni Phelan MCV (RBC) [Entitic vol] 93.8 fL Normal 80.0-94.0 [facility] Comment on above: Performed By: #### C VDAGS, CVDTB #### [facility] [address] [place] [address] Dr. Eboni Phelan MONO # 0.6 103/ul Normal 0.3-0.8 [facility] Comment on above: Performed By: #### C VDAGS, CVDTB #### [facility] [address] [place] [address] Dr. Eboni Phelan Monocytes/100 WBC (Bld) 7.6 % Normal 1.7-12.0 [facility] Comment on above: Performed By: #### C VDAGS, CVDTBH #### [facility] [address] [place] [address] Dr. Eboni Phelan NEUT # 4.4 103/ul Normal 1.4-6.5 [facility] Comment on above: Performed By: #### C VDAGS, CVDTB #### [facility] [address] [place] [address] Dr. Eboni Phelan Neutrophils/100 WBC (Bld) 59.0 % Normal 43.0-75.0 [facility] Comment on above: Performed By: #### C VDAGS, CVDTB #### [facility] [address] [place] [address] Dr. Eboni Phelan Platelet mean volume (Bld) [Entitic vol] 9.9 fL Normal 9.5-13.5 [facility] Comment on above: Performed By: #### C VDAGS, CVDTBH #### [facility] [address] [place] [address] Dr. Eboni Phelan PLT 231 103/ul Normal 150-450 [facility] Comment on above: Performed By: #### C VDAGS, CVDTBH #### [facility] [address] [address] [address] Eboni Phelan RBC 4.70 106/ul Normal 4.70-6.10 [facility] Comment on above: Performed By: #### C VDAGS, CVDTBH #### [facility] [address] [address] [address] Eboni Phelan WBC 7.4 103/ul Normal 4.0-11.0 [facility] Comment on above: Performed By: #### C VDAGS, CVDTBH #### [facility] [address] [address] [address] Eboni Phelan GLYCOHEMOGLOBIN A1Con 2021 ADA RECOMMENDATION ADA THERAPEUTIC TARGET 6.0 - 7.0 ACTION SUGGESTED > 7.0 Normal [facility] Comment on above: Performed By: #### C PRICE CVDTBH #### [facility] [address] [address] [address] Eboni Phelan Glucose [Mass/Vol] 103 mg/dL Normal [facility] Comment on above: Performed By: #### C PRICE CVDTBH #### [facility] [address] [address] [address] Eboni Phelan HbA1c (Bld) [Mass fraction] 5.2 % Normal <=6.0 [facility] Comment on above: Performed By: #### C PRICE, CVDTBH #### [facility] [address] [address] [address] Eboni Phelan LIPID PROFILEon 01-19-2022 CHOL-HDL RATIO NORM SEE BELOW Normal [facility] Comment on above: Result Comment: 3.3 - 4.4 LOW RISK 4.4 - 7.1 AVERAGE RISK 7.1 - 11.0 MODERATE RISK >11.0 HIGH RISK Performed By: #### C VDAGS, CVDTBH #### [facility] [address] [address] [address] Eboni Phelan Cholesterol [Mass/Vol] 179 mg/dL Normal <=200 [facility] Comment on above: Performed By: #### C VDAGS, CVDTBH #### [facility] [address] [address] [address] Eboni Phelan Cholesterol in HDL [Mass/Vol] 41 mg/dL Normal 40-60 [facility] Comment on above: Performed By: #### C VDAGS, CVDTBH #### [facility] [address] [address] [address] Eboni Phelan Cholesterol in LDL [Mass/Vol] 117.6 mg/dL Normal [facility] Comment on above: Performed By: #### C VDAGS, CVDTBH #### [facility] [address] [address] [address] Eboni Phelan Cholesterol.total/Ch olesterol in HDL [Mass ratio] 4.4 {ratio} Normal [facility] Comment on above: Performed By: #### C VDAGS CVDTBH #### [facility] [address] [address] [address] Eboni Phelan HDL NORMAL > or = 60 mg/dl - LOW CARDIOVASCULAR RISK <40 mg/dl - HIGH CARDIOVASCULAR RISK Normal [facility] Comment on above: Performed By: #### C VDAGMarc CVDTBH #### [facility] [address] [address] [address] Eboni Phelan LDL CALC NORMAL SEE BELOW Normal [facility] Comment on above: Result Comment: <100 mg/dl OPTIMAL 100 - 129 mg/dl NEAR OR ABOVE OPTIMAL 130 - 159 mg/dl BORDERLINE HIGH 160 - 189 mg/dl HIGH >190 mg/dl VERY HIGH Performed By: #### C VDAGS, CVDTBH #### [facility] [address] [address] [address] Eboni Phelan Triglyceride [Mass/Vol] 102 mg/dL Normal <=150 [facility] Comment on above: Performed By: #### C VDAGS, CVDTBH #### [facility] [address] [address] [address] Eboni Phelan VLDL CALC 20.4 mg/dL Normal [facility] Comment on above: Performed By: #### C PRICE CVDTBH #### [facility] [address] [place] [address] Dr. Eboni Phelan PROF 14(COMP METB)on 022 Albumin [Mass/Vol] 4.0 g/dL Normal 3.4-5.0 [facility] Comment on above: Performed By: #### C PRICE CVDTBH #### [facility] [address] [place] [address] Dr. Eboni Phelan Albumin/Globulin [Mass ratio] 1.1 {ratio} Normal [facility] Comment on above: Performed By: #### C CORNELIUS THRASHERTBH #### [facility] [address] [place] [address] Dr. Eboni Phelan ALP [Catalytic activity/Vol] 87 U/L Normal 46-116 [facility] Comment on above: Performed By: #### C PRICE CVDTBH #### [facility] [address] [place] [address] Dr. Eboni Phelan ALT [Catalytic activity/Vol] 49 U/L Normal 16-63 [facility] Comment on above: Performed By: #### C CORNELIUS THRASHERTBH #### [facility] [address] [place] [address] Dr. Eboni Phelan Anion gap [Moles/Vol] 8.8 mmol/L Normal [facility] Comment on above: Performed By: #### C VDAGMarc CVDTBH #### [facility] [address] [place] [address] Dr. Eboni Phelan AST [Catalytic activity/Vol] 22 U/L Normal 15-37 [facility] Comment on above: Performed By: #### C PRICE CVDTBH #### [facility] [address] [place] [address] Dr. Eboni Phelan Bilirubin [Mass/Vol] 0.4 mg/dL Normal 0.2-1.3 [facility] Comment on above: Performed By: #### C VDAGMarc CVDTBH #### [facility] [address] [place], [place] [id number] Dr. Eboni Phelan Calcium [Mass/Vol] 9.2 mg/dL Normal 8.5-10.1 [facility] Comment on above: Performed By: #### C VDAGS, CVDTBH #### [facility] [address] [place] [address] Dr. Eboni Phelan Chloride [Moles/Vol] 101 mmol/L Normal 98-107 [facility] Comment on above: Performed By: #### C VDAGS, CVDTBH #### [facility] [address] [place] [address] Dr. Eboni Phelan CO2 [Moles/Vol] 30.7 mmol/L Critically high 22.0-30.0 [facility] Comment on above: Performed By: #### C VDAGS, CVDTBH #### [facility] [address] [place] [address] Dr. Eboni Phelan Creatinine [Mass/Vol] 1.00 mg/dL Normal 0.66-1.25 [facility] Comment on above: Performed By: #### C VDAGS, CVDTBH #### [facility] [address] [place] [address] Dr. Eboni Phelan EGFR-AF SCOTTISH >60 Normal >=60 [facility] Comment on above: Performed By: #### C VDAGS, CVDTBH #### [facility] [address] [place] [address] Dr. Eboni Phelan EGFR-NON AF SCOTTISH >60 Normal >=60 [facility] Comment on above: Performed By: #### C VDAGS, CVDTBH #### [facility] [address] [place] [address] Dr. Eboni Phelan Globulin (S) [Mass/Vol] 3.8 g/dL Normal [facility] Comment on above: Performed By: #### C VDAGS, CVDTBH #### [facility] [address] [place] [address] Dr. Eboni Phelan Glucose [Mass/Vol] 102 mg/dL Normal 74-106 [facility] Comment on above: Performed By: #### C VDAGS, CVDTBH #### [facility] [address] [place] [address] Dr. Eboni Phelan Potassium [Moles/Vol] 4.5 mmol/L Normal 3.4-5.0 [facility] Comment on above: Performed By: #### C KITTYAGMarc CVDTBH #### [facility] [address] [place] [address] Dr. Eboni Phelan Protein [Mass/Vol] 7.8 g/dL Normal 6.1-8.2 [facility] Comment on above: Performed By: #### C KITTYAGMarc CVDTBH #### [facility] [address] [place] [address] Dr. Eboni Phelan Sodium [Moles/Vol] 136 mmol/L Critically low 137-145 [facility] Comment on above: Performed By: #### C PRICE CVDTBH #### [facility] [address] [place] [address] Dr. Eboni Phelan Urea nitrogen [Mass/Vol] 8.0 mg/dL Normal 7.0-18.0 [facility] Comment on above: Performed By: #### C PRICE CVDTBH #### [facility] [address] [place] [address] Dr. Eboni Phelan Urea nitrogen/Creatinine [Mass ratio] 8.0 mg/mg Normal [facility] Comment on above: Performed By: #### C PRICE CVDTBH #### [facility] [address] [place] [address] Dr. Eboni Phelan TSHon 01-19-2022 TSH 0.953 uIU/mL Normal 0.470-4.680 [facility] Comment on above: Performed By: #### C PRICE CVDTBH #### [facility] [address] [place] [address] Dr. Eboni Phelan TSH RANGE SEE BELOW Normal [facility] Comment on above: Result Comment: <0.3 4 UIU/ml HYPERTHYROID 0.34-5.60 UIU/ml EUTHYROID >5.60 UIU/ml HYPOTHYROID Performed By: #### C DIANAS, CVDTBH #### [facility] [address] [place], [place] [address] Dr. Eboni Phelan Covid-19 PCR ([facility])on 06-16 SARS-CoV-2 (COVID-19) RNA WINIFRED+probe Ql (Unsp spec) Not detected Normal NOT DETECTED [facility] Comment on above: Result Comment: This test is not yet approved or cleared by the [place] FDA. When there are no FDA-approved or cleared tests available, and other criteria are met, FDA can make tests available under an emergency access mechanism called an Emergency Use Authorization (EUA). The EUA for this test is supported by the [place] of Health and Human Service's (HHS's) declaration [...] Performed By: #### C PRICE, CVDTB #### [facility] [address] [place], [place] [address] Dr. Eboni Phelan SYMPTOMATIC COVID-19 ANTIGEN on 07-01-2021 EUA Statement SEE BELOW Normal [facility] Comment on above: Result Comment: This [...] Performed By: #### C VDAGS, CVDTB #### [facility] [address] [place], [place] [address] Dr. Eboni Phelan SARS-CoV-2 (COVID-19) RNA WINIFRED+probe Ql (Unsp spec) Negative Normal NEGATIVE [facility] Comment on above: Result Comment: CONF IRMATION BY PCR PENDING PER CDC GUIDELINES/ SYMPTOMATIC PATIENT. Performed By: #### C VDAGS, CVDTB #### [facility] [address] [place], [place] [address] Dr. Eboni Phelan Vital Signs Date Time Vital Sign Value Performing Clinician Faci lity 03-04-2025 08:41-0400 Body height 166.4 cm Anna Iniguez MD Work Phone: [facility] 03-04-2025 08:41-0400 Body mass index (BMI) [Ratio] 33.63 kg/m2 Anna Iniguez MD Work Phone: [facility] 03-04-2025 08:41-0400 Body temperature 98.6 [degF] Anna Iniguez MD Work Phone: [facility] 03-04-2025 08:41-0400 Body weight 93.08 kg Anna Iniguez MD Work Phone: [facility] 03-04-2025 08:41-0400 Diastolic blood pressure 80 mm[Hg] Anna Iniguez MD Work Phone: [facility] 03-04-2025 08:41-0400 Heart rate 65 /min Anna Iniguez MD Work Phone: [facility] 03-04-2025 08:41-0400 SaO2% (BldA) [Mass fraction] 99 % Anna Iniguez MD Work Phone: [facility] 03-04-2025 08:41-0400 Systolic blood pressure 138 mm[Hg] Anna Iniguez MD Work Phone: [facility] Encounters Encounter Date Encounter Type Care Provider Facility Start: 08-25-2025 ambulatory Kalie oMrse Galea Facility :[facility] Start: 05-27-2025 End: 05-27-2025 ambulatory Anna Iniguez Facility:[facility] Start: 05-27-2025 End: 05-27-2025 Patient encounter procedure Kalie Ibarra [facility] Start: 03-04-2025 End: 03-04-2025 Bamboo flowsabigail Iniguez [...] medical examination without abnormal findings JOSSY INIGUEZ [facility] Start: 01-19-2022 End: 01-20-2022 ambulatory JOSSY INIGUEZ Facility:[facility] Start: 01-19-2022 End: 01-20-2022 Encounter for general adult medical examination without abnormal findings JOSSY INIGUEZ Facility:[facility] Start: 08-11-2021 End: 08-12-2021 ambulatory CLEO DODGE Facility:[facility] Start: 07-01-2021 End: 07-01-2021 ambulatory JOSIE ANNMARIE GAFFNEY Facility:[facility] Procedures Date Procedure Procedure Detail Performing Clinician Start: 01-19-2022 PSA screening JOSSY JONES Comment on above: Performed By: #### P SAS #### [facility] [address] [place] [address] Dr. Eboni Phelan Plan of Treatment Date Care Activity Detail Author Start: 03-04-2025 End: 03-04-2025 Patient encounter procedure 03/04/2025 8:40 AM EDT Office Visit [facility] [address] [place] [id number] Anna Iniguez MD [address] [place] [address] Arrived [facility] Comment on above: Arrived Immunizations Immunization Date Immunization Notes Care Provider Fa [facility] 10-07-2019 influenza, seasonal, injectable, preservative free Anna Iniguez MD Work Phone: [facility] 04-09-2002 hepatitis B vaccine, pediatric or pediatric/adolescent dosage Anna Iniguez MD Work Phone: [facility] Payers Date Payer Category Payer Private Health Insurance [id number] 2022 [facility] [id number] 2022 Unknown [id number] 2019 Unknown [id number] 1982 Unknown [id number]. 1259 1982 Unknown [id number] [id number]. 727 1982 Unknown [id number] [id number]. 727 1982 Unknown [id number] [id number]. 727 1959 Self-pay [id number] 1959 Unknown [id number] [id number]. 593 1959 Unknown [id number] [id number]. 593 1959 Unknown [id number] [id number]. 593 1959 Unknown [id number] [id number]. 593 1959 Unknown [id number] [id number]. 593 Unknown [id number]. 593 Social History Date Type Detail Facility Start: 08-24-2023 Tobacco smoking status SDIS Ex-smoker [facility] Start: 10-21-2020 History of tobacco use Current smoker [facility] Start: 10-21-2020 History of tobacco use Cigarette Smoker [facility] Start: 08-24-2023 Tobacco use and exposure Smokeless tobacco non-user [facility] Start: 08-24-2023 End: 03-04-2025 Alcoholic [...] Healthcare How often do you att end bahai or sikhism services? Patient declined [facility] Are you [...] Start: 08-23-2023 Alcohol Comment Caffeine intake: soda [facility] Start: 1980 Sex assigned at Male [facility] Start: 2022 Gender identity Identifies as male gender (finding) [facility] Start: 08-23-2023 Sexual orientation Bisexual (finding) [facility] Start: 08-23-2023 Sexual orientation Heterosexual (finding) [facility] Start: 05-26-2025 Tobacco smoking status Light tobacco smoker (finding) [facility] Sexual Orientation [facility] Start: 01-04-2019 Sex Male (finding) [facility] Functional Status Date Assessment Result Facility 03-04-2025 Patient Health Quest ionnaire 2 item (PHQ-2) [Reported] [facility] Hospital Discharge instructions 05-27-2025 Note Date [...] urethra. Follow these instructions at home: Take [id number] and prescription medicines only as told by [...] provider. Document Revised: 04/20/2022 Document Reviewed: 04/20/2022 [employer] Patient Education 2023 [employer]. Follow Up Care 05/14/2025 11:04:22 With:Kalie Chung, URL Address: When:3 months Comments:w/ KIM [facility] Clinical Note 05-27-2025 Note Date & Type [...] Follow these instructions at home: ??? Take [id number] and prescription medicines only as told by [...] do not get (more content not included)... [facility] History of Present illness Narrative 03-04-2025 [...] to monitor weight documented in this encounter [facility] Evaluation + Plan note Note Date & Type Note Facility Evaluation + Plan note Future Appointments Appointment Date:08/25/2025 03:10:00 PM Scheduled Provider:Kalie Chung Location:[facility] Appointment Type:URO Office Visit Diagnostic Tests PendingPSA Total 05/27/25 [facility] Evaluation note Note Date & Type Note Facility Evaluation note Diagnosis Annual physical exam- Primary Routine general medical examination at a health care facility Polyuria BMI 33.0-33.9,adult Obesity (BMI 30.0-34.9) documented in this encounter [facility] Hospital course Narrative Note Date & Type Note Facility Hospital course Narrative No data available for this section [facility] Progress note Note Date & Type Note Facility Progress note No data available for this section [facility] Nona Summary Purpose Family History No Family [...] DATE CREATED AUTHOR AUTHOR'S ORGANIZ ATION 03/05/2025 [facility] EPIC DATE CREATED AUTHOR AUTHOR'S ORGANIZ ATION 05/29/2025 [facility] Care Teams (unrecognized sec tion and content) Mri Supervisor Relationship Specialty Start Date End Date Anna Iniguez MD [address] [place] [address] PCP - General 08/23/23 Mri Supervisor Relationship Specialty Start Date End Date Anna Iniguez MD [address] [place] [address] PCP - General 08/23/23 Reason for Visit [...] BE BASED ON THE PRIMARY CLINICAL RECORDS. [facility] [employer] [facility]. provides no warranty or guarantee of the accuracy or completeness of information in this document.
[2025-06-17 10:29] LABS: Prostate Specific Antigen Dx 2.26 ng/mL (<=4.00)
== END 2025-06-17 08:43 | disposition home or self-care (01) ==
PROVIDERS: Family Provider Student in an Organized Health Care Education/Training Program; PCP Student in an Organized Health Care Education/Training Program; Visit Provider Nurse Practitioner
DX: Z12.5 Encounter for screening for malignant neoplasm of prostate (principal)
CPT/HCPCS: 36415; 84153